=== PATIENT | female | born 1975 | race Caucasian/White ===

== ENCOUNTER 2018-05-23 10:43 | Inpatient (IN) | payer SELFPAY ==
[2018-05-23] VITALS (17 sets, daily range): BP systolic 122–148; BP diastolic 75–86
[~2018-05-23] VITALS: Ht 152.4 cm; Wt 82.1 kg
[2018-05-23 10:57] LABS: BASO # 0.1 x10^3/uL (0.0-0.2); BASO % 1 % (0-3); EOS # 0.2 x10^3/uL (0.0-0.7); EOS % 2 % (0-3); HEMATOCRIT 42.4 % (36.0-47.0); HEMOGLOBIN 14.2 g/dL (12.0-15.5); LYMPH # 2.7 x10^3/uL (1.0-4.8); LYMPH % 25 % (24-48); MEAN CORPUSCULAR HEMOGLOBIN 29 pg (25-35); MEAN CORPUSCULAR HGB CONC 34 g/dL (31-37); MEAN CORPUSCULAR VOLUME 87 fL (79-100); MONO # 1.6 x10^3/uL (0.0-1.1); MONO % 14 % (0-9); NEUT # 6.4 x10^3uL (1.8-7.7); NEUT % 59 % (31-73); PLATELET COUNT 170 x10^3/uL (140-400); RED BLOOD COUNT 4.86 x10^6/uL (3.50-5.40)
[2018-05-23] MEDS ORDERED: AMIODARONE 900 MG in IV DEXTROSE 5% 500 ML IV PRN (11:00)
[2018-05-23] MEDS ORDERED: HEPARIN for IV BOLUS 10,000 UNIT/10 ML VIAL. IV ONE (11:00)
--- NOTE | 2018-05-23 11:02 | PHYS DOC ---
Past Medical History Additional Past Medical Histor: ITP, Neutropennic Past Surgical History: Hysterectomy Additional Past Surgical Histo: Spleenectomy Additional Information: Nonsmoker Drug Use: None Adult General Chief Complaint Chief Complaint: CHEST PAIN-CARDIAC NATURE HPI HPI 43-year-old female presents from [place] as a STEMI activation. Patient reports she was swimming and suddenly started to have some crushing chest pain and nausea. Patient reports cardiac risk factors of family history with her father having an IL in his 60s. Denies diabetes, high blood pressure, high cholesterol, or smoking history. Denies . EMS reports giving 324 mg of aspirin, 100 g of fentanyl, nitroglycerin sublingual 2, zofran 4mg, and 1 inch of Nitropaste. Denies trauma. Denies leg swelling or calf tenderness. Review of Systems Review of Systems Constitutional: Denies fever or chills [] Eyes: Denies change in visual acuity, redness, or eye pain [] HENT: Denies nasal congestion or sore throat [] Respiratory: Denies cough or shortness of breath [] Cardiovascular: Reports chest pain GI: Denies abdominal pain; reports nausea : Denies dysuria or hematuria [] Musculoskeletal: Denies back pain or joint pain [] Integument: Denies rash or skin lesions [] Neurologic: Denies headache, focal weakness or sensory changes [] Complete systems were reviewed and found to be within normal limits, except as documented in this note. Current Medications Current Medications Current Medications Medications (Trade) Dose Ordered Sig/Kyleigh Start Time Stop Time Status Last Admin Dose Admin Amiodarone HCl 900 mg/Dextrose 518 ml @ 33 mls/hr CONT PRN 05/23/18 11:00 Heparin Sodium (Porcine) (Heparin Sodium) 4,000 unit 1X ONCE 05/23/18 11:00 05/23/18 11:01 DC Allergies Allergies Allergies Coded Allergies Type Severity Reaction Last Updated Verified morphine Adverse Reaction Intermediate "MAKES HER ANGRY" 05/23/18 Yes Physical Exam Physical Exam Constitutional: Well developed, well nourished, no acute distress, non-toxic appearance. [] HENT: Normocephalic, atraumatic, bilateral external ears normal, oropharynx moist, no oral exudates, nose normal. [] Eyes: PERRLA, EOMI, conjunctiva normal, no discharge. [] Neck: Normal range of motion, no tenderness, supple, no stridor. [] Cardiovascular:Heart rate regular rhythm, no murmur [] Lungs & Thorax: Bilateral breath sounds clear to auscultation [] Abdomen: Bowel sounds normal, soft, no tenderness, no masses, no pulsatile masses. [] Skin: Warm, dry, no erythema, no rash. [] Back: No tenderness, no CVA tenderness. [] Extremities: No tenderness, no cyanosis, no clubbing, ROM intact, no edema. [] Neurologic: Alert and oriented X 3, normal motor function, normal sensory function, no focal deficits noted. [] Psychologic: Affect normal, judgement normal, mood normal. [] EKG EKG [] Radiology/Procedures Radiology/Procedures [] Course & Med Decision Making Course & Med Decision Making Pertinent Labs and Imaging studies reviewed. (See chart for details) [] Dragon Disclaimer Dragon Disclaimer This electronic medical record was generated, in whole or in part, using a voice recognition dictation system. Departure Departure Impression: Primary Impression: STEMI (ST elevation myocardial infarction) Disposition: 09 ADMITTED INPATIENT Admitting Physician: Other (Romario) Condition: GUARDED Referrals: NO PCP (PCP) Critical Care Time Critical care time was 30 minutes which includes time at bedside, spent in discussion of patient's care with specialists and/or family members, with interpretation of laboratory and/or radiological studies and is exclusive of procedures. Problem Qualifiers Primary Impression: STEMI (ST elevation myocardial infarction) Involved coronary artery: unspecified coronary artery Qualified Codes: I21.3 - ST elevation (STEMI) myocardial infarction of unspecified site MICHELLE WASSERMAN DO May 23, 2018 11:02
[2018-05-23 11:08] LABS: PROTHROMBIN TIME PATIENT 12.8 SEC (11.7-14.0)
[2018-05-23] MEDS ORDERED: SUCCINYLCHOLINE 200 MG/10 ML VIAL. ONE (11:10)
[2018-05-23] MEDS ORDERED: ETOMIDATE 20 MG/10 ML VIAL. IV ONE (11:10)
[2018-05-23 11:12] LABS: CALCIUM 8.4 mg/dL (8.5-10.1); CREATININE 0.6 mg/dL (0.6-1.0); GFR 109.6; POTASSIUM 3.9 mmol/L (3.5-5.1)
[2018-05-23] MEDS ORDERED: MIDAZOLAM 100mg/100ml NS BAG 100 ML IV ONE (11:15)
[2018-05-23 11:18] LABS: ALBUMIN 3.4 g/dL (3.4-5.0); ALBUMIN/GLOBULIN RATIO 0.9 (1.0-1.7); MAGNESIUM 1.8 mg/dL (1.8-2.4); TOTAL BILIRUBIN 0.3 mg/dL (0.2-1.0); TOTAL PROTEIN 7.1 g/dL (6.4-8.2)
[2018-05-23] MEDS: IV NORMAL SALINE 1000ML BAG 1,000 ML IV SCH ×3 (11:27→23:20)
[2018-05-23] MEDS ORDERED: BIVALIRUDIN 250 MG VIAL. IV ONE ×2 (11:28→11:30)
[2018-05-23] MEDS ORDERED: IODIXANOL 320 MG/ML 100 ML VIAL. IART ONE (11:30)
[2018-05-23] MEDS ORDERED: LIDOCAINE 1% Multi-Dose 20 ML VIAL. INJ ONE (11:30)
[2018-05-23] MEDS ORDERED: MIDAZOLAM HCL/PF 2 MG/2 ML VIAL. IV ONE (11:30)
--- NOTE | 2018-05-23 11:40 | NUR ---
Patient arrived to ER via [facility] at 1041, EKG and Heparin IVP given then immediately transported to cath laboratory technician. During transport to cath laboratory technician patient went into pulseless Vfib at 1046 then shocked at 200J, regained pulse with SR at 1047 no compressions. Arrived to mushroom laborer at 1048, patient breathing with SR, diaphoretic and vomiting multiple times. Unable to lay flat due to vomiting. Patient intubated at 1105am by anesthesia, OG placed to continuous suction with clear and yellow liquid with food particles. Right groin accessed and proceeded with cardiac cath. Orders place according to Dr. Ryan.
--- NOTE | 2018-05-23 11:41 | EKG ---
[facility] [address] [place] [address] Test Date: 2018-05-23 Test Time: 10:45:25 Pat Name: DANIEL MCGRATH Department: Room: Gender: F Insurance Claims Supervisor: : 1975 Requested By: MICHELLE WASSERMAN Order Number: [id number] Reading MD: Ganesh Parks Measurements Intervals [place] Rate: 62 P: 26 NV: 156 QRS: -9 QRSD: 88 T: -1 QT: 424 QTc: 433 Interpretive Statements SINUS RHYTHM LEFTWARD AXIS QRS(T) CONTOUR ABNORMALITY *CONSIDER ACUTE ANTEROLATERAL MYOCARDIAL INFARCT ABNORMAL ECG Electronically Signed On 05-28-2018 13:15:20 CDT by Ganesh Parks
[2018-05-23] MEDS ORDERED: CONTRAST GIVEN. MC PRN (11:45)
[2018-05-23] MEDS ORDERED: IODIXANOL 320 MG/ML 100 ML VIAL. ONE (11:52)
[2018-05-23] MEDS ORDERED: TICAGRELOR 90 MG TABLET. PO ONE (12:00)
[2018-05-23] MEDS ORDERED: NITROGLYCERIN 200 MCG/2 ML SYRINGE FOR CATH/VASC LAB. IART ONE (12:15)
[2018-05-23] MEDS ORDERED: AMIODARONE 150 MG in IV DEXTROSE 5% 100ML 100 ML IV PRN (12:45)
[2018-05-23] MEDS ORDERED: NITROGLYCERIN SUBLINGUAL 0.4 MG BOTTLE OF 25. SL PRN (12:45)
[2018-05-23] MEDS ORDERED: 0.9 % SODIUM CHLORIDE 10 ML DISP.SYRIN. IV PRN ×2 (12:45→13:45)
[2018-05-23] MEDS ORDERED: fentaNYL PF VIAL 100 MCG/2 ML VIAL IV PRN (12:45)
[2018-05-23] MEDS ORDERED: ACETAMINOPHEN 325 MG TABLET. PO PRN (12:45)
[2018-05-23] MEDS ORDERED: LIDOCAINE 2% 100 MG/5 ML SYRINGE. IV PRN (12:45)
[2018-05-23] MEDS ORDERED: ATROPINE 0.5 MG/5 ML DISP.SYRINGE. IV PRN (12:45)
--- NOTE | 2018-05-23 13:10 | EKG ---
[facility] [address] [place] [address] Test Date: 2018-05-23 Test Time: 13:04:13 Pat Name: DANIEL MCGRATH Department: Room: 108 1 Gender: F Maintenance Worker Swimming Pool: : 1975 Requested By: JUDY WOODRUFF Order Number: [id number] Reading MD: Ganesh Parks Measurements Intervals [place] Rate: 87 P: 31 OK: 176 QRS: 32 QRSD: 90 T: 31 QT: 396 QTc: 482 Interpretive Statements SINUS RHYTHM VENTRICULAR PREMATURE COMPLEX(ES) LEFT ATRIAL ABNORMALITY LOW LIMB LEAD VOLTAGE QRS(T) CONTOUR ABNORMALITY CANNOT RULE OUT ANTEROSEPTAL MYOCARDIAL DAMAGE PROLONGED QT ABNORMAL ECG No previous ECG available for comparison Electronically Signed On 05-28-2018 13:24:47 CDT by Ganesh Parks
[2018-05-23 13:38] LABS: BASE EXCESS ABG -3 mmol/L (-3-3); HCO3 ABG 23 mmol/L (21-28); PCO2 ABG 41 mmHg (35-46); PO2 ABG 123 mmHg (75-108); SAT O2 ABG 98 % (92-99)
[2018-05-23 13:39] LABS: FIO2 ABG 50
--- NOTE | 2018-05-23 13:55 | RAD ---
Single view of the chest. 05/23/2018 1:03 PM Indication: Endotracheal tube placement. Enteric tube placement. Comparison: None Findings: There is an endotracheal tube in place with tip approximately 3.5 cm above the jonnie. There is an enteric tube extending into stomach. No pneumothorax or pleural effusion is seen. Retrocardiac opacification appears be present in the left which could be atelectasis or infiltrate. Left coronary stent appears to be present. Bony thorax is grossly intact. IMPRESSION: 1. Endotracheal tube 2.5 cm above the jonnie 2. Enteric tube extending into the stomach 3. Retrocardiac infiltrate or atelectasis Electronically signed by: Antony Johnson MD (05/23/2018 1:51 PM) [id number]
--- NOTE | 2018-05-23 13:59 | PDOC1 ---
History and Physical Date of Admission Date of Admission DATE: 05/23/18 TIME: 13:44 Identification/Chief Complaint Chief Complaint chest pain Problems: (1) STEMI (ST elevation myocardial infarction) Source Source: Caregiver, Chart review History of Present Illness History of Present Illness 43-year-old female hx of asthma, ITP who presents with chest pain while swimming today. most hx obtained from as patient sedated on vent. states that patient had not been feeling well for past several days and saw PCP 2 days ago. noted to have leukocytosis. patient has amoxicllin at home due to hx of spleenectomy so took this bc wasn't feeling well. no reported fever cough, sob nausea vomiting or diarrhea. from [place] as a STEMI activation. Patient reports she was swimming and suddenly experienced crushing chest pain and nausea. Patient's father having an ME in his 60s. no hx of DVT or PE. per patient has been exercising frequently. no hx of diabetes, HTN, HLD, or smoking history. prior to arrival EMS reports giving 324 mg of aspirin, 100 g of fentanyl, nitroglycerin sublingual 2, zofran 4mg, and 1 inch of Nitropaste. patient found to have STEMI on EKG in lV2 and V3. 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 given bolus of amio and started on amio drip and dopamine drip. also given bolus of heparin. patient had LAD occlusion and 1 stent deployed. returned to ICU on ventilator. currently on amio drip, dopamine drip. at bedside.. Past Medical History Past Medical History ITP, asthma Past Surgical History Past Surgical History hysterectomy, splenectomy Family History Family History CAD Social History Smoke: No ALCOHOL: occassional Drugs: None Current Problem List Problem List Problems Medical Problems: (1) STEMI (ST elevation myocardial infarction) Status: Acute Current Medications Current Medications Current Medications Heparin Sodium (Porcine) (Heparin Sodium) 4,000 unit 1X ONCE IV Last administered on 05/23/18at 10:43; Start 05/23/18 at 11:00; Stop 05/23/18 at 11:01 ; Status DC Amiodarone HCl 900 mg/Dextrose 518 ml @ 33 mls/hr CONT PRN IV SEE I/O RECORD Last administered on 05/23/18at 11:25; Start 05/23/18 at 11:00; Stop 05/23/18 at 11:25; Status DC Midazolam HCl 100 ml @ 0 mls/hr 1X ONCE IV Last administered on 05/23/18at 11: 15; Start 05/23/18 at 11:15; Stop 05/23/18 at 11:16; Status DC Heparin Sodium/ Sodium Chloride 500 ml @ As Directed STK-MED ONCE .ROUTE ; Start 05/23/18 at 11:10; Stop 05/23/18 at 11:11; Status DC Etomidate (Amidate) 20 mg STK-MED ONCE IV ; Start 05/23/18 at 11:10; Stop at 11:11; Status DC Succinylcholine Chloride (Anectine) 200 mg STK-MED ONCE .ROUTE ; Start 05/23/18 at 11:10; Stop 05/23/18 at 11:11; Status DC Midazolam HCl (Versed) 2 mg 1X ONCE IV Last administered on 05/23/18at 11:27; Start 05/23/18 at 11:30; Stop 05/23/18 at 11:31; Status DC Sodium Chloride 1,000 ml @ 75 mls/hr [id number] IV Last administered on at 11:27; Start 05/23/18 at 11:30 Bivalirudin (Angiomax) 250 mg STK-MED ONCE IV ; Start 05/23/18 at 11:28; Stop at 11:29; Status DC Heparin Sodium/ Sodium Chloride (HEPARIN for ARTERIAL LINE FLUSH) 1,000 unit 1X ONCE IART Last administered on 05/23/18at 11:30; Start 05/23/18 at 11:30; Stop 05/23/18 at 11:36; Status DC Iodixanol (Visipaque 320) 100 ml 1X ONCE IART Last administered on 05/23/18at 11:30; Start 05/23/18 at 11:30; Stop 05/23/18 at 11:36; Status DC Bivalirudin (Angiomax) 250 mg 1X ONCE IV Last administered on 05/23/18at 11:30 ; Start 05/23/18 at 11:30; Stop 05/23/18 at 11:36; Status DC Lidocaine HCl (Lidocaine 1% 20ml Vial) 20 ml 1X ONCE INJ Last administered on 05/23/18at 11:30; Start 05/23/18 at 11:30; Stop 05/23/18 at 11:36; Status DC Dopamine HCl/ Dextrose 250 ml @ 5.443 mls/ hr CONT PRN IV SEE I/O RECORD Last administered on 05/23/18at 11:55; Start 05/23/18 at 11:45 Info (CONTRAST GIVEN -- Rx MONITORING) 1 each PRN DAILY PRN MC SEE COMMENTS; Start 05/23/18 at 11:45; Stop 05/25/18 at 11:44 Iodixanol (Visipaque 320) 100 ml STK-MED ONCE .ROUTE ; Start 05/23/18 at 11:52; Stop 05/23/18 at 11:53; Status DC Heparin Sodium/ Sodium Chloride 500 ml @ As Directed STK-MED ONCE .ROUTE ; Start 05/23/18 at 11:57; Stop 05/23/18 at 11:58; Status DC Ticagrelor (Brilinta) 180 mg 1X ONCE PO ; Start 05/23/18 at 12:00; Stop at 12:07; Status DC Nitroglycerin (Nitroglycerin) 400 mcg 1X ONCE IART Last administered on at 12:06; Start 05/23/18 at 12:15; Stop 05/23/18 at 12:16; Status DC Sodium Chloride (Normal Saline Flush) 3 ml QSHIFT PRN IV AFTER MEDS AND BLOOD DRAWS; Start 05/23/18 at 12:45 Sodium Chloride 1,000 ml @ 75 mls/hr [id number] IV ; Start 05/23/18 at 12:31 Tirofiban/Sodium Chloride 100 ml @ 0 mls/hr CONT PRN IV PER PROTOCOL; Start at 12:45; Stop 05/24/18 at 06:44 Ticagrelor (Brilinta) 90 mg BID PO ; Start 05/24/18 at 09:00 Acetaminophen (Tylenol) 650 mg PRN Q6HRS PRN PO MILD PAIN / TEMP; Start at 12:45 Fentanyl Citrate (Fentanyl 2ml Vial) 50 mcg PRN Q1HR PRN IV MODERATE OR SEVERE PAIN; Start 05/23/18 at 12:45 Nitroglycerin (Nitrostat) 0.4 mg PRN Q5MIN PRN SL CHEST PAIN; Start 05/23/18 at 12:45 Amiodarone HCl 150 mg/Dextrose 103 ml @ 600 mls/hr 1X PRN PRN IV FOR VENTRICULAR TACHYCARDIA; Start 05/23/18 at 12:45 Lidocaine HCl (Lidocaine HCl 2% Abboject) 100 mg 1X PRN PRN IV FOR VENTRICULAR TACHYCARDIA; Start 05/23/18 at 12:45 Atropine Sulfate (ATROPINE 0.5mg SYRINGE) 0.5 mg PRN 1X PRN IV BRADYCARDIA; Start 05/23/18 at 12:45 Allergies Allergies: Coded Allergies: morphine (Verified Adverse Reaction, Intermediate, "MAKES HER ANGRY", 05/23) ROS Review of System currently sedated on vent Physical Exam Physical Exam GENERAL: sedated on vent HEENT: Head normocephalic, atraumatic. NECK: Supple LUNGS: Clear to auscultation. HEART: RRR, S1, S2 present, pulses intact ABDOMEN: Soft, positive bowel sounds. EXTREMITIES: No cyanosis or edema. NEUROLOGIC: sedated on vent Vitals Vitals Vital Signs Date Time Temp Pulse Resp B/P (MAP) Pulse Ox O2 Delivery O2 Flow Rate FiO2 05/23/18 12:40 98 Ventilator 05/23/18 10:43 97.3 62 20 140/88 (105) 97.3 Labs Labs Laboratory Tests Test 05/23/18 10:47 05/23/18 10:49 05/23/18 13:05 White Blood Count 11.0 x10^3/uL (4.0-11.0) Red Blood Count 4.86 x10^6/uL (3.50-5.40) Hemoglobin 14.2 g/dL (12.0-15.5) Hematocrit 42.4 % (36.0-47.0) Mean Corpuscular Volume 87 fL (79-100) Mean Corpuscular Hemoglobin 29 pg (25-35) Mean Corpuscular Hemoglobin Concent 34 g/dL (31-37) Red Cell Distribution Width 14.0 % (11.5-14.5) Platelet Count 170 x10^3/uL (140-400) Neutrophils (%) (Auto) 59 % (31-73) Lymphocytes (%) (Auto) 25 % (24-48) Monocytes (%) (Auto) 14 % (0-9) Eosinophils (%) (Auto) 2 % (0-3) Basophils (%) (Auto) 1 % (0-3) Neutrophils # (Auto) 6.4 x10^3uL (1.8-7.7) Lymphocytes # (Auto) 2.7 x10^3/uL (1.0-4.8) Monocytes # (Auto) 1.6 x10^3/uL (0.0-1.1) Eosinophils # (Auto) 0.2 x10^3/uL (0.0-0.7) Basophils # (Auto) 0.1 x10^3/uL (0.0-0.2) Prothrombin Time 12.8 SEC (11.7-14.0) Prothromb Time International Ratio 1.0 (0.8-1.1) Activated Partial Thromboplast Time 30 SEC (24-38) Sodium Level 138 mmol/L (136-145) Potassium Level 3.9 mmol/L (3.5-5.1) Chloride Level 102 mmol/L (98-107) Carbon Dioxide Level 23 mmol/L (21-32) Anion Gap 13 (6-14) Blood Urea Nitrogen 15 mg/dL (7-20) Creatinine 0.6 mg/dL (0.6-1.0) Estimated GFR (Cockcroft-Gault) 109.6 BUN/Creatinine Ratio 25 (6-20) Glucose Level 104 mg/dL (70-99) Calcium Level 8.4 mg/dL (8.5-10.1) Magnesium Level 1.8 mg/dL (1.8-2.4) Total Bilirubin 0.3 mg/dL (0.2-1.0) Aspartate Amino Transf (AST/SGOT) 19 U/L (15-37) Alanine Aminotransferase (ALT/SGPT) 25 U/L (14-59) Alkaline Phosphatase 42 U/L (46-116) Creatine Kinase 78 U/L (26-192) Creatine Kinase MB (Mass) 1.0 ng/mL (0.0-3.6) Creatine Kinase MB Relative Index 1.3 % (0-4) Troponin I Quantitative 0.155 ng/mL (0.000-0.055) [id number]-Type Natriuretic Peptide 46 pg/mL (0-124) Total Protein 7.1 g/dL (6.4-8.2) Albumin 3.4 g/dL (3.4-5.0) Albumin/Globulin Ratio 0.9 (1.0-1.7) Lipase 90 U/L (73-393) Bedside Troponin I 0.10 ng/ml (<0.08) O2 Saturation 98 % (92-99) Arterial Blood pH 7.36 (7.35-7.45) Arterial Blood pCO2 at Patient Temp 41 mmHg (35-46) Arterial Blood pO2 at Patient Temp 123 mmHg (75-108) Arterial Blood HCO3 23 mmol/L (21-28) Arterial Blood Base Excess -3 mmol/L (-3-3) FiO2 50 Laboratory Tests Test 05/23/18 10:47 05/23/18 10:49 05/23/18 13:05 White Blood Count 11.0 x10^3/uL (4.0-11.0) Red Blood Count 4.86 x10^6/uL (3.50-5.40) Hemoglobin 14.2 g/dL (12.0-15.5) Hematocrit 42.4 % (36.0-47.0) Mean Corpuscular Volume 87 fL (79-100) Mean Corpuscular Hemoglobin 29 pg (25-35) Mean Corpuscular Hemoglobin Concent 34 g/dL (31-37) Red Cell Distribution Width 14.0 % (11.5-14.5) Platelet Count 170 x10^3/uL (140-400) Neutrophils (%) (Auto) 59 % (31-73) Lymphocytes (%) (Auto) 25 % (24-48) Monocytes (%) (Auto) 14 % (0-9) Eosinophils (%) (Auto) 2 % (0-3) Basophils (%) (Auto) 1 % (0-3) Neutrophils # (Auto) 6.4 x10^3uL (1.8-7.7) Lymphocytes # (Auto) 2.7 x10^3/uL (1.0-4.8) Monocytes # (Auto) 1.6 x10^3/uL (0.0-1.1) Eosinophils # (Auto) 0.2 x10^3/uL (0.0-0.7) Basophils # (Auto) 0.1 x10^3/uL (0.0-0.2) Prothrombin Time 12.8 SEC (11.7-14.0) Prothromb Time International Ratio 1.0 (0.8-1.1) Activated Partial Thromboplast Time 30 SEC (24-38) Sodium Level 138 mmol/L (136-145) Potassium Level 3.9 mmol/L (3.5-5.1) Chloride Level 102 mmol/L (98-107) Carbon Dioxide Level 23 mmol/L (21-32) Anion Gap 13 (6-14) Blood Urea Nitrogen 15 mg/dL (7-20) Creatinine 0.6 mg/dL (0.6-1.0) Estimated GFR (Cockcroft-Gault) 109.6 BUN/Creatinine Ratio 25 (6-20) Glucose Level 104 mg/dL (70-99) Calcium Level 8.4 mg/dL (8.5-10.1) Magnesium Level 1.8 mg/dL (1.8-2.4) Total Bilirubin 0.3 mg/dL (0.2-1.0) Aspartate Amino Transf (AST/SGOT) 19 U/L (15-37) Alanine Aminotransferase (ALT/SGPT) 25 U/L (14-59) Alkaline Phosphatase 42 U/L (46-116) Creatine Kinase 78 U/L (26-192) Creatine Kinase MB (Mass) 1.0 ng/mL (0.0-3.6) Creatine Kinase MB Relative Index 1.3 % (0-4) Troponin I Quantitative 0.155 ng/mL (0.000-0.055) [id number]-Type Natriuretic Peptide 46 pg/mL (0-124) Total Protein 7.1 g/dL (6.4-8.2) Albumin 3.4 g/dL (3.4-5.0) Albumin/Globulin Ratio 0.9 (1.0-1.7) Lipase 90 U/L (73-393) Bedside Troponin I 0.10 ng/ml (<0.08) O2 Saturation 98 % (92-99) Arterial Blood pH 7.36 (7.35-7.45) Arterial Blood pCO2 at Patient Temp 41 mmHg (35-46) Arterial Blood pO2 at Patient Temp 123 mmHg (75-108) Arterial Blood HCO3 23 mmol/L (21-28) Arterial Blood Base Excess -3 mmol/L (-3-3) FiO2 50 VTE Prophylaxis Ordered VTE Prophylaxis Devices: Yes VTE Pharmacological Prophylaxi: Yes Assessment/Plan Assessment/Plan ASSESSMENT STEMI s/p cath with LAD occlusion with stent deployed Acute Hypoxic Resp Failure Hx of Asthma Hx of ITP s/p splenectomy PLAN: admit to ICU keep on vent with sedation for 24 hrs pulm consult cards consulted defer heparin drip to cards will need NG tube placement since on vent start statin therapy anti-plt therapy per cards continue amio drip BMP and CBC stable check TSH, lipid profile, a1c full code dvt ppx: heparin > 2 MN LOS due to STEMI, resp failure on vent Problem Qualifiers (1) STEMI (ST elevation myocardial infarction): Involved coronary artery: unspecified coronary artery Qualified Codes: I21.3 - ST elevation (STEMI) myocardial infarction of unspecified site ELLYN SLADE MD May 23, 2018 13:59
--- NOTE | 2018-05-23 14:58 | CONS ---
DATE OF CONSULTATION: 05/23/2018 PULMONARY CONSULTATION ATTENDING PHYSICIAN: Dr. Woody Doss. REASON FOR CONSULTATION: Respiratory failure. HISTORY OF PRESENT ILLNESS: The patient is a 43-year-old female who has a history of very mild asthma and ITP. She had previous splenectomy. She presented with chest pain at [facility] while swimming today. The patient was brought into [facility] and had EKG changes of STEMI. She was en route to the hospital laboratory technician when she was found to be in atrial fibrillation and had to be subsequently shocked once. She was intubated for airway protection. She underwent emergent cardiac catheterization. I do not have the cath report available yet, but I was told that she had a dissection of LAD and had a stent placed. Currently, she is stable hemodynamically. She is on Versed and amiodarone and also on p.r.n. fentanyl. I have reviewed chest x-ray. It shows minimal atelectasis of retrocardiac area and endotracheal tube is in satisfactory position. Her is at the bedside who states that she has no chronic lung condition except very mild asthma, which is under well controlled with p.r.n. albuterol. PAST MEDICAL HISTORY: Significant for history of ITP, history of mild asthma. PAST SURGICAL HISTORY: Hysterectomy and splenectomy. FAMILY HISTORY: CAD. SOCIAL HISTORY: Nonsmoker, nonalcoholic. ALLERGIES: MORPHINE. MEDICATIONS: Reviewed as listed in the MRAD. PHYSICAL EXAMINATION: VITAL SIGNS: Reviewed, blood pressure stable, pulse ox 98% on room air. HEENT: Sclerae nonicteric. NECK: Supple. LUNGS: Clear. CARDIOVASCULAR: Regular rate and rhythm. ABDOMEN: Soft. EXTREMITIES: With no pitting edema. LABORATORY DATA: Reviewed. ABG showed a pH of 7.36, pCO2 of 41, and pO2 of 123 on 50% FiO2. She is on assist control mode. Her troponin level was 14.3. Her BUN and creatinine 15 and 0.6. Lipase 90. INR 1.0. White cell count 11.0, hemoglobin 14.2. IMPRESSION: 1. Acute respiratory failure secondary to cardiac arrhythmia and ST elevation myocardial infarction. 2. Status post emergent cardiac catheterization with dissection of left anterior descending artery, status post stenting. Official report is still pending. 3. Mild history of asthma on p.r.n. albuterol. 4. Abnormal chest x-ray with atelectasis in retrocardiac area. We will follow another x-ray in the morning. 5. History of idiopathic thrombocytopenic purpura, status post splenectomy. RECOMMENDATIONS: 1. Discussed with RN and . We will watch her overnight on the ventilator. 2. Change Versed to propofol and add fentanyl drip. Hopefully, we can easily awake her up in the morning before CPAP trial. 3. Add bronchodilators. 4. Follow cardiology recommendations. 5. Watch hemodynamic status closely. Critical care time 33 minutes. CARMEN UMANZOR MD DR: EFREN/sommer JOB#: [id number] / [id number]
[2018-05-23] MEDS: ALBUTEROL SULFATE 2.5 MG/3 ML NEBU. NEB SCH ×2 (16:18→19:59)
--- NOTE | 2018-05-23 17:38 | CARD ---
MR#: [id number] Date of Study: 05/23/2018 Ordering Physician: JUDY CHAPA, Referring Physician: Fred RYAN: RT Lizy (R) APPROVED REPORT Procedures Left heart catheterization Selective coronary angiogram Left ventriculogram Bare metal stent placement to the mid LAD The patient is a 43-year-old female who presented to the emergency room with 1-1-1/2 hours of chest p ain. Initial EKG in the ambulance suggested anterior wall myocardial infarction. The patient has a hi story of an unspecified disorder possibly with her platelets. She otherwise has been in good health. Upon her arrival in the emergency room an EKG confirmed anterior ST elevation consistent with an infa rction. Risks and benefits of emergency catheterization and revascularization were discussed with the patient and her . She agreed to proceed with catheterization and possible intervention. Upon transfer from the ER to the catheter lab the patient had a ventricular fibrillation arrest and was de fibrillated while on the cart. She then was brought to the catheter lab where she had recurrent episo mony of nausea and vomiting with some decreased level of consciousness. Secondary to this the patient was intubated to protect her airway. Following intubation the area of the right femoral artery was prepared in the usual manner with Betad ine, sterile draping and local anesthetic. An 18-gauge needle was used to enter the right femoral art jyoti, a wire placed and a 6 Canadian sheath placed over the wire. An 18-gauge needle was entered using t he right femoral vein, a wire placed and a 6 Canadian sheath placed over the wire. Initially a 6 Canadian Ketan diagnostic right catheter was used to engage the right coronary artery and sequential injec tions in various views were obtained. A 6 Canadian XB 3.5 guide was used to engage the left coronary sy stem. Sequential injections in various views were obtained. This showed a greater than 90% lesion in the mid LAD that was very suggestive of a spontaneous dissection. We proceeded to revascularize this vessel. Of note there was distal flow present when we took our initial images. Angiomax was given as per protocol. A PT choice wire was used to cross the lesion. A 2.5 x 20 mm trek balloon was used for an initial 2 inflations at 6 walt for 15 seconds. A MultiLM2 Digital Limited vision bare metal stent 3.0 x 28 mm was then deployed with one inflation at 15 walt for 15 seconds. Residual lesion was 0%. The area both of the proximal and more distal portion of the initial lesion were well covered by the stent. We monitored the vessel for approximately 10 minutes. It remained stable with good flow. F ollowing this the guiding system was removed from the patient. A pigtail was then advanced to the lef t ventricle. Pressures were obtained and a 30 PERSAUD left ventriculogram was performed. Pullback pressu res were measured. The catheter was removed the patient. The sheaths were sutured into place. The pat ient was then moved to the intensive care unit. <Conclusion> Hemodynamics. Left ventricular pressure of 126/9, 22. Aortic root pressure of 124/78. Coronaries. Left main. Left main was a moderate size vessel. It had no lesions. Left anterior descending. The LAD was a moderate size vessel with normal distribution. It had mid les ion of approximately 90% or greater. Its initial site of the lesion was suggestive of a spontaneous d issection. Left circumflex. The left circumflex is a moderate size vessel with normal distribution. It had no le sions. Right coronary artery. The right coronary was a moderate size vessel with normal distribution. It had no lesions. Left ventriculogram. The left ventricle showed mildly decreased anterior apical LV function with an ejection estimated at 45%. Conclusions. Status post ventricular fibrillation arrest. Severe single-vessel coronary disease with a greater than 90% mid LAD lesion suggestive of a spontane ous dissection. Successful stenting of the LAD with residual lesion of 0% Mildly decreased LV systolic function with an ejection fraction of 45%. Signed by : Judy Chapa MD Electronically Approved : 05/23/2018 17:38:00
--- NOTE | 2018-05-23 18:01 | PDOC2 ---
CONSULT Date of Consult Date of Consult DATE: 05/23/18 TIME: 17:56 Reason for Consult Reason for Consult: ST elevated myocardial infarction Referring Physician Referring Physician: Dr. Doss Identification/Chief Complaint Chief Complaint Chest pain Source Source: Patient History of Present Illness Reason for Visit: The patient is a pleasant 43-year-old female who developed chest pain approximately one hour ago. Patient was swimming and developed midsternal chest discomfort. Paramedics were called and her EKG was suggestive of an anterior wall ST elevated myocardial infarction. She was transported emergently to the [facility] emergency room. She was met when she entered the emergency room. She was continued to have chest pain. EKG again showed anterior ST segment elevations. Patient reported a history of possible platelet abnormality as well as asthma. She denies any history of coronary disease, congestive heart failure or cardiac arrhythmias. She does have a strong family history of coronary disease. Past Medical History Pulmonary: Asthma Past Surgical History Past Surgical History: No pertinent history Family History Family History: Coronary Artery Disease, Heart Disease Social History No ALCOHOL: occassional Drugs: None Current Problem List Problem List Problems Medical Problems: (1) STEMI (ST elevation myocardial infarction) Status: Acute Current Medications Current Medications Current Medications Heparin Sodium (Porcine) (Heparin Sodium) 4,000 unit 1X ONCE IV Last administered on 05/23/18at 10:43; Start 05/23/18 at 11:00; Stop 05/23/18 at 11:01 ; Status DC Amiodarone HCl 900 mg/Dextrose 518 ml @ 33 mls/hr CONT PRN IV SEE I/O RECORD Last administered on 05/23/18at 11:25; Start 05/23/18 at 11:00; Stop 05/23/18 at 11:25; Status DC Midazolam HCl 100 ml @ 0 mls/hr 1X ONCE IV Last administered on 05/23/18at 11: 15; Start 05/23/18 at 11:15; Stop 05/23/18 at 14:42; Status DC Heparin Sodium/ Sodium Chloride 500 ml @ As Directed STK-MED ONCE .ROUTE ; Start 05/23/18 at 11:10; Stop 05/23/18 at 11:11; Status DC Etomidate (Amidate) 20 mg STK-MED ONCE IV ; Start 05/23/18 at 11:10; Stop at 11:11; Status DC Succinylcholine Chloride (Anectine) 200 mg STK-MED ONCE .ROUTE ; Start 05/23/18 at 11:10; Stop 05/23/18 at 11:11; Status DC Midazolam HCl (Versed) 2 mg 1X ONCE IV Last administered on 05/23/18at 11:27; Start 05/23/18 at 11:30; Stop 05/23/18 at 11:31; Status DC Sodium Chloride 1,000 ml @ 75 mls/hr [id number] IV Last administered on at 11:27; Start 05/23/18 at 11:30 Bivalirudin (Angiomax) 250 mg STK-MED ONCE IV ; Start 05/23/18 at 11:28; Stop at 11:29; Status DC Heparin Sodium/ Sodium Chloride (HEPARIN for ARTERIAL LINE FLUSH) 1,000 unit 1X ONCE IART Last administered on 05/23/18at 11:30; Start 05/23/18 at 11:30; Stop 05/23/18 at 11:36; Status DC Iodixanol (Visipaque 320) 100 ml 1X ONCE IART Last administered on 05/23/18at 11:30; Start 05/23/18 at 11:30; Stop 05/23/18 at 11:36; Status DC Bivalirudin (Angiomax) 250 mg 1X ONCE IV Last administered on 05/23/18at 11:30 ; Start 05/23/18 at 11:30; Stop 05/23/18 at 11:36; Status DC Lidocaine HCl (Lidocaine 1% 20ml Vial) 20 ml 1X ONCE INJ Last administered on 05/23/18at 11:30; Start 05/23/18 at 11:30; Stop 05/23/18 at 11:36; Status DC Dopamine HCl/ Dextrose 250 ml @ 5.443 mls/ hr CONT PRN IV SEE I/O RECORD Last administered on 05/23/18at 11:55; Start 05/23/18 at 11:45; Stop 05/23/18 at 14:42 ; Status DC Info (CONTRAST GIVEN -- Rx MONITORING) 1 each PRN DAILY PRN MC SEE COMMENTS; Start 05/23/18 at 11:45; Stop 05/25/18 at 11:44 Iodixanol (Visipaque 320) 100 ml STK-MED ONCE .ROUTE ; Start 05/23/18 at 11:52; Stop 05/23/18 at 11:53; Status DC Heparin Sodium/ Sodium Chloride 500 ml @ As Directed STK-MED ONCE .ROUTE ; Start 05/23/18 at 11:57; Stop 05/23/18 at 11:58; Status DC Ticagrelor (Brilinta) 180 mg 1X ONCE PO Last administered on 05/23/18at 14:00; Start 05/23/18 at 12:00; Stop 05/23/18 at 12:07; Status DC Nitroglycerin (Nitroglycerin) 400 mcg 1X ONCE IART Last administered on at 12:06; Start 05/23/18 at 12:15; Stop 05/23/18 at 12:16; Status DC Sodium Chloride (Normal Saline Flush) 3 ml QSHIFT PRN IV AFTER MEDS AND BLOOD DRAWS; Start 05/23/18 at 12:45 Sodium Chloride 1,000 ml @ 75 mls/hr [id number] IV Last administered on at 14:06; Start 05/23/18 at 12:31 Tirofiban/Sodium Chloride 100 ml @ 0 mls/hr CONT PRN IV PER PROTOCOL; Start at 12:45; Stop 05/24/18 at 06:44 Ticagrelor (Brilinta) 90 mg BID PO ; Start 05/24/18 at 09:00 Acetaminophen (Tylenol) 650 mg PRN Q6HRS PRN PO MILD PAIN / TEMP; Start at 12:45 Fentanyl Citrate (Fentanyl 2ml Vial) 50 mcg PRN Q1HR PRN IV MODERATE OR SEVERE PAIN; Start 05/23/18 at 12:45 Nitroglycerin (Nitrostat) 0.4 mg PRN Q5MIN PRN SL CHEST PAIN; Start 05/23/18 at 12:45 Amiodarone HCl 150 mg/Dextrose 103 ml @ 600 mls/hr 1X PRN PRN IV FOR VENTRICULAR TACHYCARDIA; Start 05/23/18 at 12:45 Lidocaine HCl (Lidocaine HCl 2% Abboject) 100 mg 1X PRN PRN IV FOR VENTRICULAR TACHYCARDIA; Start 05/23/18 at 12:45 Atropine Sulfate (ATROPINE 0.5mg SYRINGE) 0.5 mg PRN 1X PRN IV BRADYCARDIA; Start 05/23/18 at 12:45 Sodium Chloride (Normal Saline Flush) 3 ml QSHIFT PRN IV AFTER MEDS AND BLOOD DRAWS; Start 05/23/18 at 13:45 Fentanyl Citrate 30 ml @ 0 mls/hr CONT PRN PRN IV PER PROTOCOL; Start 05/23/18 at 14:15; Status Cancel Fentanyl Citrate 30 ml @ 0 mls/hr CONT PRN IV PER PROTOCOL; Start 05/23/18 at 14:30 Albuterol Sulfate (Ventolin Neb Soln) 2.5 mg RTQID NEB Last administered on at 16:18; Start 05/23/18 at 16:00 Propofol 100 ml @ 1.089 mls/ hr CONT PRN IV SEE I/O RECORD; Start 05/23/18 at 14:45 Allergies Allergies: Coded Allergies: morphine (Verified Adverse Reaction, Intermediate, "MAKES HER ANGRY", 05/23) ROS Respiratory: YES: Shortness of breath Cardiovascular: yes Chest Pain Physical Exam General: moderate distress HEENT: Atraumatic Lungs: Clear to auscultation Heart: Regular rate Abdomen: Normal bowel sounds Vitals VITALS Vital Signs Date Time Temp Pulse Resp B/P (MAP) Pulse Ox O2 Delivery O2 Flow Rate FiO2 05/23/18 17:00 82 14 136/76 (96) 100 Ventilator 05/23/18 16:00 98.9 98.9 Labs Labs Laboratory Tests Test 05/23/18 10:47 05/23/18 10:49 05/23/18 13:05 05/23/18 13:45 White Blood Count 11.0 x10^3/uL (4.0-11.0) Red Blood Count 4.86 x10^6/uL (3.50-5.40) Hemoglobin 14.2 g/dL (12.0-15.5) Hematocrit 42.4 % (36.0-47.0) Mean Corpuscular Volume 87 fL (79-100) Mean Corpuscular Hemoglobin 29 pg (25-35) Mean Corpuscular Hemoglobin Concent 34 g/dL (31-37) Red Cell Distribution Width 14.0 % (11.5-14.5) Platelet Count 170 x10^3/uL (140-400) Neutrophils (%) (Auto) 59 % (31-73) Lymphocytes (%) (Auto) 25 % (24-48) Monocytes (%) (Auto) 14 % (0-9) Eosinophils (%) (Auto) 2 % (0-3) Basophils (%) (Auto) 1 % (0-3) Neutrophils # (Auto) 6.4 x10^3uL (1.8-7.7) Lymphocytes # (Auto) 2.7 x10^3/uL (1.0-4.8) Monocytes # (Auto) 1.6 x10^3/uL (0.0-1.1) Eosinophils # (Auto) 0.2 x10^3/uL (0.0-0.7) Basophils # (Auto) 0.1 x10^3/uL (0.0-0.2) Prothrombin Time 12.8 SEC (11.7-14.0) Prothromb Time International Ratio 1.0 (0.8-1.1) Activated Partial Thromboplast Time 30 SEC (24-38) Sodium Level 138 mmol/L (136-145) Potassium Level 3.9 mmol/L (3.5-5.1) Chloride Level 102 mmol/L (98-107) Carbon Dioxide Level 23 mmol/L (21-32) Anion Gap 13 (6-14) Blood Urea Nitrogen 15 mg/dL (7-20) Creatinine 0.6 mg/dL (0.6-1.0) Estimated GFR (Cockcroft-Gault) 109.6 BUN/Creatinine Ratio 25 (6-20) Glucose Level 104 mg/dL (70-99) Calcium Level 8.4 mg/dL (8.5-10.1) Magnesium Level 1.8 mg/dL (1.8-2.4) Total Bilirubin 0.3 mg/dL (0.2-1.0) Aspartate Amino Transf (AST/SGOT) 19 U/L (15-37) Alanine Aminotransferase (ALT/SGPT) 25 U/L (14-59) Alkaline Phosphatase 42 U/L (46-116) Creatine Kinase 78 U/L (26-192) Creatine Kinase MB (Mass) 1.0 ng/mL (0.0-3.6) Creatine Kinase MB Relative Index 1.3 % (0-4) Troponin I Quantitative 0.155 ng/mL (0.000-0.055) 14.312 ng/mL (0.000-0.055) FN-Rwb-P-Type Natriuretic Peptide 46 pg/mL (0-124) Total Protein 7.1 g/dL (6.4-8.2) Albumin 3.4 g/dL (3.4-5.0) Albumin/Globulin Ratio 0.9 (1.0-1.7) Triglycerides Level 65 mg/dL (0-150) Cholesterol Level 155 mg/dL (0-200) LDL Cholesterol, Calculated 91 mg/dL (0-100) VLDL Cholesterol, Calculated 13 mg/dL (0-40) Non-HDL Cholesterol Calculated 104 mg/dL (0-129) HDL Cholesterol 51 mg/dL (40-60) Cholesterol/HDL Ratio 3.0 Lipase 90 U/L (73-393) Thyroid Stimulating Hormone (TSH) 1.568 uIU/mL (0.358-3.74) Bedside Troponin I 0.10 ng/ml (<0.08) O2 Saturation 98 % (92-99) Arterial Blood pH 7.36 (7.35-7.45) Arterial Blood pCO2 at Patient Temp 41 mmHg (35-46) Arterial Blood pO2 at Patient Temp 123 mmHg (75-108) Arterial Blood HCO3 23 mmol/L (21-28) Arterial Blood Base Excess -3 mmol/L (-3-3) FiO2 50 Laboratory Tests Test 05/23/18 10:47 05/23/18 10:49 05/23/18 13:05 05/23/18 13:45 White Blood Count 11.0 x10^3/uL (4.0-11.0) Red Blood Count 4.86 x10^6/uL (3.50-5.40) Hemoglobin 14.2 g/dL (12.0-15.5) Hematocrit 42.4 % (36.0-47.0) Mean Corpuscular Volume 87 fL (79-100) Mean Corpuscular Hemoglobin 29 pg (25-35) Mean Corpuscular Hemoglobin Concent 34 g/dL (31-37) Red Cell Distribution Width 14.0 % (11.5-14.5) Platelet Count 170 x10^3/uL (140-400) Neutrophils (%) (Auto) 59 % (31-73) Lymphocytes (%) (Auto) 25 % (24-48) Monocytes (%) (Auto) 14 % (0-9) Eosinophils (%) (Auto) 2 % (0-3) Basophils (%) (Auto) 1 % (0-3) Neutrophils # (Auto) 6.4 x10^3uL (1.8-7.7) Lymphocytes # (Auto) 2.7 x10^3/uL (1.0-4.8) Monocytes # (Auto) 1.6 x10^3/uL (0.0-1.1) Eosinophils # (Auto) 0.2 x10^3/uL (0.0-0.7) Basophils # (Auto) 0.1 x10^3/uL (0.0-0.2) Prothrombin Time 12.8 SEC (11.7-14.0) Prothromb Time International Ratio 1.0 (0.8-1.1) Activated Partial Thromboplast Time 30 SEC (24-38) Sodium Level 138 mmol/L (136-145) Potassium Level 3.9 mmol/L (3.5-5.1) Chloride Level 102 mmol/L (98-107) Carbon Dioxide Level 23 mmol/L (21-32) Anion Gap 13 (6-14) Blood Urea Nitrogen 15 mg/dL (7-20) Creatinine 0.6 mg/dL (0.6-1.0) Estimated GFR (Cockcroft-Gault) 109.6 BUN/Creatinine Ratio 25 (6-20) Glucose Level 104 mg/dL (70-99) Calcium Level 8.4 mg/dL (8.5-10.1) Magnesium Level 1.8 mg/dL (1.8-2.4) Total Bilirubin 0.3 mg/dL (0.2-1.0) Aspartate Amino Transf (AST/SGOT) 19 U/L (15-37) Alanine Aminotransferase (ALT/SGPT) 25 U/L (14-59) Alkaline Phosphatase 42 U/L (46-116) Creatine Kinase 78 U/L (26-192) Creatine Kinase MB (Mass) 1.0 ng/mL (0.0-3.6) Creatine Kinase MB Relative Index 1.3 % (0-4) Troponin I Quantitative 0.155 ng/mL (0.000-0.055) 14.312 ng/mL (0.000-0.055) UD-Bht-Z-Type Natriuretic Peptide 46 pg/mL (0-124) Total Protein 7.1 g/dL (6.4-8.2) Albumin 3.4 g/dL (3.4-5.0) Albumin/Globulin Ratio 0.9 (1.0-1.7) Triglycerides Level 65 mg/dL (0-150) Cholesterol Level 155 mg/dL (0-200) LDL Cholesterol, Calculated 91 mg/dL (0-100) VLDL Cholesterol, Calculated 13 mg/dL (0-40) Non-HDL Cholesterol Calculated 104 mg/dL (0-129) HDL Cholesterol 51 mg/dL (40-60) Cholesterol/HDL Ratio 3.0 Lipase 90 U/L (73-393) Thyroid Stimulating Hormone (TSH) 1.568 uIU/mL (0.358-3.74) Bedside Troponin I 0.10 ng/ml (<0.08) O2 Saturation 98 % (92-99) Arterial Blood pH 7.36 (7.35-7.45) Arterial Blood pCO2 at Patient Temp 41 mmHg (35-46) Arterial Blood pO2 at Patient Temp 123 mmHg (75-108) Arterial Blood HCO3 23 mmol/L (21-28) Arterial Blood Base Excess -3 mmol/L (-3-3) FiO2 50 Assessment/Plan Assessment/Plan 1. Chest pain. Acute onset of new chest pain. EKG is consistent with an anterior wall myocardial infarction. This was discussed with the patient and her family. Risks and benefits of emergent catheterization and possible intervention were discussed. The patient is given informed consent to proceed. We'll bring emergently to the catheterization lab. 2. Asthma. Patient's lungs have no wheezing. JUDY WOODRUFF MD May 23, 2018 18:01
[2018-05-23] MEDS: TIROFIBAN 5MG -0.9% NS 100 ML IV PRN (21:37)
--- NOTE | 2018-05-23 21:45 | NUR ---
Dr Ryan called, updated on overall condition--stable vital signs, no arrhythmia, and decreasing urine output; also notified of Troponin increased to 36.115. Orders received to increase NS IVF to 100CC/HR, continue to monitor urine output and not necessary to call if continues to be low. See orders, I/O, vital signs, lab.
[2018-05-23] MEDS: TICAGRELOR 90 MG TABLET. PO SCH (23:07)
[2018-05-23] MEDS: PROPOFOL 100 ML IV PRN (23:20)
[2018-05-24] VITALS (28 sets, daily range): BP systolic 116–154; BP diastolic 59–86
[2018-05-24 00:08] LABS: HEMOGLOBIN A1C 5.2 % (4.8-5.6)
[2018-05-24] MEDS: IV NORMAL SALINE 1000ML BAG 1,000 ML IV SCH ×3 (01:51→20:18)
[2018-05-24] MEDS: TIROFIBAN 5MG -0.9% NS 100 ML IV PRN (03:49)
[2018-05-24] MEDS: PROPOFOL 100 ML IV PRN (05:46)
[2018-05-24 06:11] LABS: BASO # 0.1 x10^3/uL (0.0-0.2); BASO % 0 % (0-3); EOS # 0.1 x10^3/uL (0.0-0.7); EOS % 0 % (0-3); HEMATOCRIT 37.9 % (36.0-47.0); HEMOGLOBIN 12.8 g/dL (12.0-15.5); LYMPH % 12 % (24-48); MEAN CORPUSCULAR HEMOGLOBIN 30 pg (25-35); MEAN CORPUSCULAR HGB CONC 34 g/dL (31-37); MEAN CORPUSCULAR VOLUME 88 fL (79-100); MONO # 1.9 x10^3/uL (0.0-1.1); MONO % 12 % (0-9); NEUT # 12.5 x10^3uL (1.8-7.7); NEUT % 76 % (31-73); PLATELET COUNT 149 x10^3/uL (140-400); RED CELL DISTRIBUTION WIDTH 14.5 % (11.5-14.5); WHITE BLOOD COUNT 16.6 x10^3/uL (4.0-11.0)
[2018-05-24 06:13] LABS: CALCIUM 7.4 mg/dL (8.5-10.1); CREATININE 0.5 mg/dL (0.6-1.0); GFR 135.3; MAGNESIUM 1.8 mg/dL (1.8-2.4); POTASSIUM 3.1 mmol/L (3.5-5.1)
--- NOTE | 2018-05-24 06:32 | EKG ---
[facility] [address] [place] [address] Test Date: 2018-05-24 Test Time: 06:16:13 Pat Name: DANIEL MCGRATH Department: Room: 108 1 Gender: F [employer]: : 1975 Requested By: JUDY WOODRUFF Order Number: [id number] Reading MD: Ganesh Parks Measurements Intervals [place] Rate: 73 P: 30 NH: 178 QRS: 31 QRSD: 82 T: 29 QT: 476 QTc: 528 Interpretive Statements SINUS RHYTHM LIMB LEAD VOLTAGE QRS(T) CONTOUR ABNORMALITY CANNOT RULE OUT ANTEROSEPTAL MYOCARDIAL DAMAGE T ABNORMALITY IN ANTERIOR LEADS PROLONGED QT ABNORMAL ECG Electronically Signed On 05-29-2018 8:16:12 CDT by Ganesh Parks
[2018-05-24] MEDS: ALBUTEROL SULFATE 2.5 MG/3 ML NEBU. NEB SCH ×4 (07:23→20:00)
[2018-05-24 07:33] LABS: BASE EXCESS ABG -2 mmol/L (-3-3); HCO3 ABG 22 mmol/L (21-28); PCO2 ABG 34 mmHg (35-46); PO2 ABG 149 mmHg (75-108); SAT O2 ABG 99 % (92-99)
--- NOTE | 2018-05-24 07:55 | RAD ---
Single view of the chest. 05/24/2018 6:42 AM Indication: RESPIRATORY FAILURE Comparison: Chest radiograph, yesterday Findings: Endotracheal tube and enteric tube are stable. Coronary stent noted. Heart size is top normal. Low lung volumes are seen. There is probable mild right basilar atelectasis. There is left basilar opacification possibly representing small effusion or atelectasis. No acute osseous changes are noted in the interim. IMPRESSION: 1. Stable support lines and tubes. 2. Low lung volumes with right basilar atelectasis. Small left pleural effusion versus atelectasis also noted. Electronically signed by: Antony Johnson MD (05/24/2018 7:52 AM) [id number]
--- NOTE | 2018-05-24 07:58 | PDOC ---
PROGRESS NOTES Chief Complaint Chief Complaint STEMI s/p cath with LAD occlusion with stent deployed Acute Hypoxic Resp Failure Hx of Asthma Hx of ITP s/p splenectomy PLAN: Likely extubation this morning pulm consult cards consulted defer heparin drip to cards Replace K start statin therapy anti-plt therapy per cards continue amio drip BMP and CBC stable TSH, lipid profile, a1c full code dvt ppx: heparin > 2 MN LOS due to STEMI, resp failure on vent History of Present Illness History of Present Illness 43-year-old female hx of asthma, ITP who presents with chest pain while swimming today. most hx obtained from as patient sedated on vent. states that patient had not been feeling well for past several days and saw PCP 2 days ago. noted to have leukocytosis. patient has amoxicllin at home due to hx of spleenectomy so took this bc wasn't feeling well. no reported fever cough, sob nausea vomiting or diarrhea. from [place] as a STEMI activation. Patient reports she was swimming and suddenly experienced crushing chest pain and nausea. Patient's father having an SD in his 60s. no hx of DVT or PE. per patient has been exercising frequently. no hx of diabetes, HTN, HLD, or smoking history. prior to arrival EMS reports giving 324 mg of aspirin, 100 g of fentanyl, nitroglycerin sublingual 2, zofran 4mg, and 1 inch of Nitropaste. patient found to have STEMI on EKG in lV2 and V3. en route to clinical genetics laboratory chief patient found to be in vfib, subsequently intubated and shocked. given bolus of amio and started on amio drip and dopamine drip. also given bolus of heparin. patient had LAD occlusion and 1 stent deployed. returned to ICU on ventilator. currently on amio drip, dopamine drip. at bedside. ABG this mornin.36/41/123 on Fi O2 of 30%, Peep 5, K 3.1, Mg1.8 Vitals Vitals Vital Signs Date Time Temp Pulse Resp B/P (MAP) Pulse Ox O2 Delivery O2 Flow Rate FiO2 05/24/18 07:45 Mechanical Ventilator 05/24/18 07:39 98.7 14 100 98.7 05/24/18 07:00 71 138/74 (95) Physical Exam General: moderate distress Heart: Regular rate Abdomen: Normal bowel sounds Labs LABS Laboratory Tests Test 05/23/18 10:47 05/23/18 10:49 05/23/18 13:05 05/23/18 13:45 White Blood Count 11.0 x10^3/uL (4.0-11.0) Red Blood Count 4.86 x10^6/uL (3.50-5.40) Hemoglobin 14.2 g/dL (12.0-15.5) Hematocrit 42.4 % (36.0-47.0) Mean Corpuscular Volume 87 fL (79-100) Mean Corpuscular Hemoglobin 29 pg (25-35) Mean Corpuscular Hemoglobin Concent 34 g/dL (31-37) Red Cell Distribution Width 14.0 % (11.5-14.5) Platelet Count 170 x10^3/uL (140-400) Neutrophils (%) (Auto) 59 % (31-73) Lymphocytes (%) (Auto) 25 % (24-48) Monocytes (%) (Auto) 14 % (0-9) Eosinophils (%) (Auto) 2 % (0-3) Basophils (%) (Auto) 1 % (0-3) Neutrophils # (Auto) 6.4 x10^3uL (1.8-7.7) Lymphocytes # (Auto) 2.7 x10^3/uL (1.0-4.8) Monocytes # (Auto) 1.6 x10^3/uL (0.0-1.1) Eosinophils # (Auto) 0.2 x10^3/uL (0.0-0.7) Basophils # (Auto) 0.1 x10^3/uL (0.0-0.2) Prothrombin Time 12.8 SEC (11.7-14.0) Prothromb Time International Ratio 1.0 (0.8-1.1) Activated Partial Thromboplast Time 30 SEC (24-38) Sodium Level 138 mmol/L (136-145) Potassium Level 3.9 mmol/L (3.5-5.1) Chloride Level 102 mmol/L (98-107) Carbon Dioxide Level 23 mmol/L (21-32) Anion Gap 13 (6-14) Blood Urea Nitrogen 15 mg/dL (7-20) Creatinine 0.6 mg/dL (0.6-1.0) Estimated GFR (Cockcroft-Gault) 109.6 BUN/Creatinine Ratio 25 (6-20) Glucose Level 104 mg/dL (70-99) Hemoglobin A1c 5.2 % (4.8-5.6) Calcium Level 8.4 mg/dL (8.5-10.1) Magnesium Level 1.8 mg/dL (1.8-2.4) Total Bilirubin 0.3 mg/dL (0.2-1.0) Aspartate Amino Transf (AST/SGOT) 19 U/L (15-37) Alanine Aminotransferase (ALT/SGPT) 25 U/L (14-59) Alkaline Phosphatase 42 U/L (46-116) Creatine Kinase 78 U/L (26-192) Creatine Kinase MB (Mass) 1.0 ng/mL (0.0-3.6) Creatine Kinase MB Relative Index 1.3 % (0-4) Troponin I Quantitative 0.155 ng/mL (0.000-0.055) 14.312 ng/mL (0.000-0.055) BH-Saw-R-Type Natriuretic Peptide 46 pg/mL (0-124) Total Protein 7.1 g/dL (6.4-8.2) Albumin 3.4 g/dL (3.4-5.0) Albumin/Globulin Ratio 0.9 (1.0-1.7) Triglycerides Level 65 mg/dL (0-150) Cholesterol Level 155 mg/dL (0-200) LDL Cholesterol, Calculated 91 mg/dL (0-100) VLDL Cholesterol, Calculated 13 mg/dL (0-40) Non-HDL Cholesterol Calculated 104 mg/dL (0-129) HDL Cholesterol 51 mg/dL (40-60) Cholesterol/HDL Ratio 3.0 Lipase 90 U/L (73-393) Thyroid Stimulating Hormone (TSH) 1.568 uIU/mL (0.358-3.74) Bedside Troponin I 0.10 ng/ml (<0.08) O2 Saturation 98 % (92-99) Arterial Blood pH 7.36 (7.35-7.45) Arterial Blood pCO2 at Patient Temp 41 mmHg (35-46) Arterial Blood pO2 at Patient Temp 123 mmHg (75-108) Arterial Blood HCO3 23 mmol/L (21-28) Arterial Blood Base Excess -3 mmol/L (-3-3) FiO2 50 Test 05/23/18 20:30 05/24/18 05:45 Troponin I Quantitative 36.155 ng/mL (0.000-0.055) White Blood Count 16.6 x10^3/uL (4.0-11.0) Red Blood Count 4.30 x10^6/uL (3.50-5.40) Hemoglobin 12.8 g/dL (12.0-15.5) Hematocrit 37.9 % (36.0-47.0) Mean Corpuscular Volume 88 fL (79-100) Mean Corpuscular Hemoglobin 30 pg (25-35) Mean Corpuscular Hemoglobin Concent 34 g/dL (31-37) Red Cell Distribution Width 14.5 % (11.5-14.5) Platelet Count 149 x10^3/uL (140-400) Neutrophils (%) (Auto) 76 % (31-73) Lymphocytes (%) (Auto) 12 % (24-48) Monocytes (%) (Auto) 12 % (0-9) Eosinophils (%) (Auto) 0 % (0-3) Basophils (%) (Auto) 0 % (0-3) Neutrophils # (Auto) 12.5 x10^3uL (1.8-7.7) Lymphocytes # (Auto) 2.0 x10^3/uL (1.0-4.8) Monocytes # (Auto) 1.9 x10^3/uL (0.0-1.1) Eosinophils # (Auto) 0.1 x10^3/uL (0.0-0.7) Basophils # (Auto) 0.1 x10^3/uL (0.0-0.2) Sodium Level 138 mmol/L (136-145) Potassium Level 3.1 mmol/L (3.5-5.1) Chloride Level 104 mmol/L (98-107) Carbon Dioxide Level 24 mmol/L (21-32) Anion Gap 10 (6-14) Blood Urea Nitrogen 10 mg/dL (7-20) Creatinine 0.5 mg/dL (0.6-1.0) Estimated GFR (Cockcroft-Gault) 135.3 Glucose Level 112 mg/dL (70-99) Calcium Level 7.4 mg/dL (8.5-10.1) Magnesium Level 1.8 mg/dL (1.8-2.4) Assessment and Plan Assessmemt and Plan Problems Medical Problems: (1) STEMI (ST elevation myocardial infarction) Status: Acute Comment Review of Relevant I have reviewed the following items grant (where applicable) has been applied. Labs Laboratory Tests Test 05/23/18 10:47 05/23/18 10:49 05/23/18 13:05 05/23/18 13:45 White Blood Count 11.0 x10^3/uL (4.0-11.0) Red Blood Count 4.86 x10^6/uL (3.50-5.40) Hemoglobin 14.2 g/dL (12.0-15.5) Hematocrit 42.4 % (36.0-47.0) Mean Corpuscular Volume 87 fL (79-100) Mean Corpuscular Hemoglobin 29 pg (25-35) Mean Corpuscular Hemoglobin Concent 34 g/dL (31-37) Red Cell Distribution Width 14.0 % (11.5-14.5) Platelet Count 170 x10^3/uL (140-400) Neutrophils (%) (Auto) 59 % (31-73) Lymphocytes (%) (Auto) 25 % (24-48) Monocytes (%) (Auto) 14 % (0-9) Eosinophils (%) (Auto) 2 % (0-3) Basophils (%) (Auto) 1 % (0-3) Neutrophils # (Auto) 6.4 x10^3uL (1.8-7.7) Lymphocytes # (Auto) 2.7 x10^3/uL (1.0-4.8) Monocytes # (Auto) 1.6 x10^3/uL (0.0-1.1) Eosinophils # (Auto) 0.2 x10^3/uL (0.0-0.7) Basophils # (Auto) 0.1 x10^3/uL (0.0-0.2) Prothrombin Time 12.8 SEC (11.7-14.0) Prothromb Time International Ratio 1.0 (0.8-1.1) Activated Partial Thromboplast Time 30 SEC (24-38) Sodium Level 138 mmol/L (136-145) Potassium Level 3.9 mmol/L (3.5-5.1) Chloride Level 102 mmol/L (98-107) Carbon Dioxide Level 23 mmol/L (21-32) Anion Gap 13 (6-14) Blood Urea Nitrogen 15 mg/dL (7-20) Creatinine 0.6 mg/dL (0.6-1.0) Estimated GFR (Cockcroft-Gault) 109.6 BUN/Creatinine Ratio 25 (6-20) Glucose Level 104 mg/dL (70-99) Hemoglobin A1c 5.2 % (4.8-5.6) Calcium Level 8.4 mg/dL (8.5-10.1) Magnesium Level 1.8 mg/dL (1.8-2.4) Total Bilirubin 0.3 mg/dL (0.2-1.0) Aspartate Amino Transf (AST/SGOT) 19 U/L (15-37) Alanine Aminotransferase (ALT/SGPT) 25 U/L (14-59) Alkaline Phosphatase 42 U/L (46-116) Creatine Kinase 78 U/L (26-192) Creatine Kinase MB (Mass) 1.0 ng/mL (0.0-3.6) Creatine Kinase MB Relative Index 1.3 % (0-4) Troponin I Quantitative 0.155 ng/mL (0.000-0.055) 14.312 ng/mL (0.000-0.055) JX-Arr-V-Type Natriuretic Peptide 46 pg/mL (0-124) Total Protein 7.1 g/dL (6.4-8.2) Albumin 3.4 g/dL (3.4-5.0) Albumin/Globulin Ratio 0.9 (1.0-1.7) Triglycerides Level 65 mg/dL (0-150) Cholesterol Level 155 mg/dL (0-200) LDL Cholesterol, Calculated 91 mg/dL (0-100) VLDL Cholesterol, Calculated 13 mg/dL (0-40) Non-HDL Cholesterol Calculated 104 mg/dL (0-129) HDL Cholesterol 51 mg/dL (40-60) Cholesterol/HDL Ratio 3.0 Lipase 90 U/L (73-393) Thyroid Stimulating Hormone (TSH) 1.568 uIU/mL (0.358-3.74) Bedside Troponin I 0.10 ng/ml (<0.08) O2 Saturation 98 % (92-99) Arterial Blood pH 7.36 (7.35-7.45) Arterial Blood pCO2 at Patient Temp 41 mmHg (35-46) Arterial Blood pO2 at Patient Temp 123 mmHg (75-108) Arterial Blood HCO3 23 mmol/L (21-28) Arterial Blood Base Excess -3 mmol/L (-3-3) FiO2 50 Test 05/23/18 20:30 05/24/18 05:45 Troponin I Quantitative 36.155 ng/mL (0.000-0.055) White Blood Count 16.6 x10^3/uL (4.0-11.0) Red Blood Count 4.30 x10^6/uL (3.50-5.40) Hemoglobin 12.8 g/dL (12.0-15.5) Hematocrit 37.9 % (36.0-47.0) Mean Corpuscular Volume 88 fL (79-100) Mean Corpuscular Hemoglobin 30 pg (25-35) Mean Corpuscular Hemoglobin Concent 34 g/dL (31-37) Red Cell Distribution Width 14.5 % (11.5-14.5) Platelet Count 149 x10^3/uL (140-400) Neutrophils (%) (Auto) 76 % (31-73) Lymphocytes (%) (Auto) 12 % (24-48) Monocytes (%) (Auto) 12 % (0-9) Eosinophils (%) (Auto) 0 % (0-3) Basophils (%) (Auto) 0 % (0-3) Neutrophils # (Auto) 12.5 x10^3uL (1.8-7.7) Lymphocytes # (Auto) 2.0 x10^3/uL (1.0-4.8) Monocytes # (Auto) 1.9 x10^3/uL (0.0-1.1) Eosinophils # (Auto) 0.1 x10^3/uL (0.0-0.7) Basophils # (Auto) 0.1 x10^3/uL (0.0-0.2) Sodium Level 138 mmol/L (136-145) Potassium Level 3.1 mmol/L (3.5-5.1) Chloride Level 104 mmol/L (98-107) Carbon Dioxide Level 24 mmol/L (21-32) Anion Gap 10 (6-14) Blood Urea Nitrogen 10 mg/dL (7-20) Creatinine 0.5 mg/dL (0.6-1.0) Estimated GFR (Cockcroft-Gault) 135.3 Glucose Level 112 mg/dL (70-99) Calcium Level 7.4 mg/dL (8.5-10.1) Magnesium Level 1.8 mg/dL (1.8-2.4) Laboratory Tests Test 05/23/18 10:47 05/23/18 10:49 05/23/18 13:05 05/23/18 13:45 White Blood Count 11.0 x10^3/uL (4.0-11.0) Red Blood Count 4.86 x10^6/uL (3.50-5.40) Hemoglobin 14.2 g/dL (12.0-15.5) Hematocrit 42.4 % (36.0-47.0) Mean Corpuscular Volume 87 fL (79-100) Mean Corpuscular Hemoglobin 29 pg (25-35) Mean Corpuscular Hemoglobin Concent 34 g/dL (31-37) Red Cell Distribution Width 14.0 % (11.5-14.5) Platelet Count 170 x10^3/uL (140-400) Neutrophils (%) (Auto) 59 % (31-73) Lymphocytes (%) (Auto) 25 % (24-48) Monocytes (%) (Auto) 14 % (0-9) Eosinophils (%) (Auto) 2 % (0-3) Basophils (%) (Auto) 1 % (0-3) Neutrophils # (Auto) 6.4 x10^3uL (1.8-7.7) Lymphocytes # (Auto) 2.7 x10^3/uL (1.0-4.8) Monocytes # (Auto) 1.6 x10^3/uL (0.0-1.1) Eosinophils # (Auto) 0.2 x10^3/uL (0.0-0.7) Basophils # (Auto) 0.1 x10^3/uL (0.0-0.2) Prothrombin Time 12.8 SEC (11.7-14.0) Prothromb Time International Ratio 1.0 (0.8-1.1) Activated Partial Thromboplast Time 30 SEC (24-38) Sodium Level 138 mmol/L (136-145) Potassium Level 3.9 mmol/L (3.5-5.1) Chloride Level 102 mmol/L (98-107) Carbon Dioxide Level 23 mmol/L (21-32) Anion Gap 13 (6-14) Blood Urea Nitrogen 15 mg/dL (7-20) Creatinine 0.6 mg/dL (0.6-1.0) Estimated GFR (Cockcroft-Gault) 109.6 BUN/Creatinine Ratio 25 (6-20) Glucose Level 104 mg/dL (70-99) Hemoglobin A1c 5.2 % (4.8-5.6) Calcium Level 8.4 mg/dL (8.5-10.1) Magnesium Level 1.8 mg/dL (1.8-2.4) Total Bilirubin 0.3 mg/dL (0.2-1.0) Aspartate Amino Transf (AST/SGOT) 19 U/L (15-37) Alanine Aminotransferase (ALT/SGPT) 25 U/L (14-59) Alkaline Phosphatase 42 U/L (46-116) Creatine Kinase 78 U/L (26-192) Creatine Kinase MB (Mass) 1.0 ng/mL (0.0-3.6) Creatine Kinase MB Relative Index 1.3 % (0-4) Troponin I Quantitative 0.155 ng/mL (0.000-0.055) 14.312 ng/mL (0.000-0.055) NR-Fla-E-Type Natriuretic Peptide 46 pg/mL (0-124) Total Protein 7.1 g/dL (6.4-8.2) Albumin 3.4 g/dL (3.4-5.0) Albumin/Globulin Ratio 0.9 (1.0-1.7) Triglycerides Level 65 mg/dL (0-150) Cholesterol Level 155 mg/dL (0-200) LDL Cholesterol, Calculated 91 mg/dL (0-100) VLDL Cholesterol, Calculated 13 mg/dL (0-40) Non-HDL Cholesterol Calculated 104 mg/dL (0-129) HDL Cholesterol 51 mg/dL (40-60) Cholesterol/HDL Ratio 3.0 Lipase 90 U/L (73-393) Thyroid Stimulating Hormone (TSH) 1.568 uIU/mL (0.358-3.74) Bedside Troponin I 0.10 ng/ml (<0.08) O2 Saturation 98 % (92-99) Arterial Blood pH 7.36 (7.35-7.45) Arterial Blood pCO2 at Patient Temp 41 mmHg (35-46) Arterial Blood pO2 at Patient Temp 123 mmHg (75-108) Arterial Blood HCO3 23 mmol/L (21-28) Arterial Blood Base Excess -3 mmol/L (-3-3) FiO2 50 Test 05/23/18 20:30 05/24/18 05:45 Troponin I Quantitative 36.155 ng/mL (0.000-0.055) White Blood Count 16.6 x10^3/uL (4.0-11.0) Red Blood Count 4.30 x10^6/uL (3.50-5.40) Hemoglobin 12.8 g/dL (12.0-15.5) Hematocrit 37.9 % (36.0-47.0) Mean Corpuscular Volume 88 fL (79-100) Mean Corpuscular Hemoglobin 30 pg (25-35) Mean Corpuscular Hemoglobin Concent 34 g/dL (31-37) Red Cell Distribution Width 14.5 % (11.5-14.5) Platelet Count 149 x10^3/uL (140-400) Neutrophils (%) (Auto) 76 % (31-73) Lymphocytes (%) (Auto) 12 % (24-48) Monocytes (%) (Auto) 12 % (0-9) Eosinophils (%) (Auto) 0 % (0-3) Basophils (%) (Auto) 0 % (0-3) Neutrophils # (Auto) 12.5 x10^3uL (1.8-7.7) Lymphocytes # (Auto) 2.0 x10^3/uL (1.0-4.8) Monocytes # (Auto) 1.9 x10^3/uL (0.0-1.1) Eosinophils # (Auto) 0.1 x10^3/uL (0.0-0.7) Basophils # (Auto) 0.1 x10^3/uL (0.0-0.2) Sodium Level 138 mmol/L (136-145) Potassium Level 3.1 mmol/L (3.5-5.1) Chloride Level 104 mmol/L (98-107) Carbon Dioxide Level 24 mmol/L (21-32) Anion Gap 10 (6-14) Blood Urea Nitrogen 10 mg/dL (7-20) Creatinine 0.5 mg/dL (0.6-1.0) Estimated GFR (Cockcroft-Gault) 135.3 Glucose Level 112 mg/dL (70-99) Calcium Level 7.4 mg/dL (8.5-10.1) Magnesium Level 1.8 mg/dL (1.8-2.4) Medications Current Medications Heparin Sodium (Porcine) (Heparin Sodium) 4,000 unit 1X ONCE IV Last administered on 05/23/18at 10:43; Start 05/23/18 at 11:00; Stop 05/23/18 at 11:01 ; Status DC Amiodarone HCl 900 mg/Dextrose 518 ml @ 33 mls/hr CONT PRN IV SEE I/O RECORD Last administered on 05/23/18at 11:25; Start 05/23/18 at 11:00; Stop 05/23/18 at 11:25; Status DC Midazolam HCl 100 ml @ 0 mls/hr 1X ONCE IV Last administered on 05/23/18at 11: 15; Start 05/23/18 at 11:15; Stop 05/23/18 at 14:42; Status DC Heparin Sodium/ Sodium Chloride 500 ml @ As Directed STK-MED ONCE .ROUTE ; Start 05/23/18 at 11:10; Stop 05/23/18 at 11:11; Status DC Etomidate (Amidate) 20 mg STK-MED ONCE IV ; Start 05/23/18 at 11:10; Stop at 11:11; Status DC Succinylcholine Chloride (Anectine) 200 mg STK-MED ONCE .ROUTE ; Start 05/23/18 at 11:10; Stop 05/23/18 at 11:11; Status DC Midazolam HCl (Versed) 2 mg 1X ONCE IV Last administered on 05/23/18at 11:27; Start 05/23/18 at 11:30; Stop 05/23/18 at 11:31; Status DC Sodium Chloride 1,000 ml @ 100 mls/hr Q10H IV Last administered on 05/23/18at 23:20; Start 05/23/18 at 11:30 Bivalirudin (Angiomax) 250 mg STK-MED ONCE IV ; Start 05/23/18 at 11:28; Stop at 11:29; Status DC Heparin Sodium/ Sodium Chloride (HEPARIN for ARTERIAL LINE FLUSH) 1,000 unit 1X ONCE IART Last administered on 05/23/18at 11:30; Start 05/23/18 at 11:30; Stop 05/23/18 at 11:36; Status DC Iodixanol (Visipaque 320) 100 ml 1X ONCE IART Last administered on 05/23/18at 11:30; Start 05/23/18 at 11:30; Stop 05/23/18 at 11:36; Status DC Bivalirudin (Angiomax) 250 mg 1X ONCE IV Last administered on 05/23/18at 11:30 ; Start 05/23/18 at 11:30; Stop 05/23/18 at 11:36; Status DC Lidocaine HCl (Lidocaine 1% 20ml Vial) 20 ml 1X ONCE INJ Last administered on 05/23/18at 11:30; Start 05/23/18 at 11:30; Stop 05/23/18 at 11:36; Status DC Dopamine HCl/ Dextrose 250 ml @ 5.443 mls/ hr CONT PRN IV SEE I/O RECORD Last administered on 05/23/18at 11:55; Start 05/23/18 at 11:45; Stop 05/23/18 at 14:42 ; Status DC Info (CONTRAST GIVEN -- Rx MONITORING) 1 each PRN DAILY PRN MC SEE COMMENTS; Start 05/23/18 at 11:45; Stop 05/25/18 at 11:44 Iodixanol (Visipaque 320) 100 ml STK-MED ONCE .ROUTE ; Start 05/23/18 at 11:52; Stop 05/23/18 at 11:53; Status DC Heparin Sodium/ Sodium Chloride 500 ml @ As Directed STK-MED ONCE .ROUTE ; Start 05/23/18 at 11:57; Stop 05/23/18 at 11:58; Status DC Ticagrelor (Brilinta) 180 mg 1X ONCE PO Last administered on 05/23/18at 14:00; Start 05/23/18 at 12:00; Stop 05/23/18 at 12:07; Status DC Nitroglycerin (Nitroglycerin) 400 mcg 1X ONCE IART Last administered on at 12:06; Start 05/23/18 at 12:15; Stop 05/23/18 at 12:16; Status DC Sodium Chloride (Normal Saline Flush) 3 ml QSHIFT PRN IV AFTER MEDS AND BLOOD DRAWS; Start 05/23/18 at 12:45 Sodium Chloride 1,000 ml @ 75 mls/hr [id number] IV Last administered on at 14:06; Start 05/23/18 at 12:31; Stop 05/24/18 at 02:50; Status DC Tirofiban/Sodium Chloride 100 ml @ 0 mls/hr CONT PRN IV PER PROTOCOL Last administered on 05/24/18at 03:49; Start 05/23/18 at 12:45; Stop 05/24/18 at 06:44 ; Status DC Ticagrelor (Brilinta) 90 mg BID PO Last administered on 05/23/18at 23:07; Start 05/23/18 at 23:00 Acetaminophen (Tylenol) 650 mg PRN Q6HRS PRN PO MILD PAIN / TEMP; Start at 12:45 Fentanyl Citrate (Fentanyl 2ml Vial) 50 mcg PRN Q1HR PRN IV MODERATE OR SEVERE PAIN; Start 05/23/18 at 12:45 Nitroglycerin (Nitrostat) 0.4 mg PRN Q5MIN PRN SL CHEST PAIN; Start 05/23/18 at 12:45 Amiodarone HCl 150 mg/Dextrose 103 ml @ 600 mls/hr 1X PRN PRN IV FOR VENTRICULAR TACHYCARDIA; Start 05/23/18 at 12:45 Lidocaine HCl (Lidocaine HCl 2% Abboject) 100 mg 1X PRN PRN IV FOR VENTRICULAR TACHYCARDIA; Start 05/23/18 at 12:45 Atropine Sulfate (ATROPINE 0.5mg SYRINGE) 0.5 mg PRN 1X PRN IV BRADYCARDIA; Start 05/23/18 at 12:45 Sodium Chloride (Normal Saline Flush) 3 ml QSHIFT PRN IV AFTER MEDS AND BLOOD DRAWS; Start 05/23/18 at 13:45 Fentanyl Citrate 30 ml @ 0 mls/hr CONT PRN PRN IV PER PROTOCOL; Start 05/23/18 at 14:15; Status Cancel Fentanyl Citrate 30 ml @ 0 mls/hr CONT PRN IV PER PROTOCOL Last administered on 05/23/18at 23:32; Start 05/23/18 at 14:30 Albuterol Sulfate (Ventolin Neb Soln) 2.5 mg RTQID NEB Last administered on at 07:23; Start 05/23/18 at 16:00 Propofol 100 ml @ 1.089 mls/ hr CONT PRN IV SEE I/O RECORD Last administered on 05/24/18at 05:46; Start 05/23/18 at 14:45 Vitals/I & O Vital Sign - Last 24 Hours 05/23/18 05/23/18 05/23/18 05/23/18 10:43 12:30 12:35 12:40 Temp 97.3 98.0 97.3 98.0 Pulse 62 94 Resp 20 14 B/P (MAP) 140/88 (105) 122/75 (91) 129/76 (93) Pulse Ox 98 100 98 O2 Delivery Room Air Ventilator Ventilator 05/23/18 05/23/18 05/23/18 05/23/18 12:45 12:45 13:00 13:15 Pulse 94 90 92 Resp 16 22 16 B/P (MAP) 136/80 (98) 132/78 (96) 138/78 (98) Pulse Ox 100 100 100 O2 Delivery Mechanical Ventilator Ventilator Ventilator Ventilator 05/23/18 05/23/18 05/23/18 05/23/18 13:30 13:45 14:00 15:00 Pulse 88 86 90 Resp 14 14 14 B/P (MAP) 136/80 (98) 138/78 (98) 136/80 (98) Pulse Ox 100 100 100 O2 Delivery Ventilator Ventilator Ventilator Ventilator 05/23/18 05/23/18 05/23/18 05/23/18 16:00 16:00 16:13 17:00 Temp 98.9 98.9 Pulse 82 82 Resp 14 14 B/P (MAP) 130/76 (94) 136/76 (96) Pulse Ox 100 100 100 O2 Delivery Ventilator Mechanical Ventilator Ventilator Ventilator 05/23/18 05/23/18 05/23/18 05/23/18 18:00 19:00 19:59 20:00 Pulse 90 80 90 Resp 14 14 B/P (MAP) 132/77 (95) 140/80 (100) 144/78 (100) Pulse Ox 100 100 100 O2 Delivery Ventilator Ventilator Ventilator 05/23/18 05/23/18 05/23/18 05/23/18 20:00 20:00 20:21 21:00 Temp 98.4 98.4 Pulse 90 91 Resp 14 14 B/P (MAP) 148/84 (105) 144/78 (100) 141/79 (99) Pulse Ox 100 100 O2 Delivery Ventilator Mechanical Ventilator Ventilator 05/23/18 05/23/18 05/23/18 05/23/18 22:00 23:00 23:29 23:32 Pulse 88 84 Resp 14 14 14 B/P (MAP) 142/86 (104) 142/82 (102) Pulse Ox 100 99 99 99 O2 Delivery Ventilator Ventilator Ventilator Ventilator 05/23/18 05/23/18 05/23/18 05/23/18 23:59 23:59 23:59 23:59 Temp 99.0 99.0 Pulse 80 80 Resp 14 14 B/P (MAP) 140/78 (98) 140/78 (98) Pulse Ox 99 99 O2 Delivery Mechanical Ventilator Ventilator 05/24/18 05/24/18 05/24/18 05/24/18 01:00 02:00 02:31 03:00 Pulse 78 81 73 Resp 14 14 14 B/P (MAP) 154/86 (108) 147/82 (103) 144/78 (100) Pulse Ox 99 100 100 100 O2 Delivery Ventilator Ventilator Ventilator Ventilator 05/24/18 05/24/18 05/24/18 05/24/18 04:00 04:00 04:00 04:53 Temp 99.1 99.1 Pulse 74 74 Resp 14 B/P (MAP) 136/72 (93) 136/72 (93) Pulse Ox 99 99 O2 Delivery Mechanical Ventilator Ventilator Ventilator 05/24/18 05/24/18 05/24/18 05/24/18 05:00 06:00 07:00 07:23 Pulse 68 75 71 Resp 14 14 14 B/P (MAP) 135/73 (93) 136/76 (96) 138/74 (95) Pulse Ox 100 100 100 100 O2 Delivery Ventilator Ventilator Ventilator Ventilator 05/24/18 05/24/18 07:39 07:45 Temp 98.7 98.7 Resp 14 Pulse Ox 100 O2 Delivery Mechanical Ventilator Intake and Output 05/23/18 05/23/18 05/24/18 15:00 23:00 07:00 Intake Total 0 ml 1603.5 ml Output Total 900 ml 950 ml 270 ml Balance -900 ml -950 ml 1333.5 ml GLORIA ROCHA MD May 24, 2018 07:58
[2018-05-24] MEDS ORDERED: POTASSIUM CHLORIDE 20 MEQ/15 ML ORAL LIQUID. PEG ONE (08:00)
[2018-05-24] MEDS ORDERED: MAGNESIUM SULFATE 1GM 100 ML IV ONE (08:00)
[2018-05-24 08:24] LABS: FIO2 ABG 40
[2018-05-24 08:26] LABS: % BANDS 1 % (0-9); % LYMPHS 12 % (24-48); % MONOS 8 % (0-10); % SEGS 79 % (35-66); PLT ESTIMATE ADEQUATE (ADEQUATE)
[2018-05-24] MEDS: TICAGRELOR 90 MG TABLET. PO SCH ×2 (08:30→21:27)
--- NOTE | 2018-05-24 10:21 | PDOC ---
PULMONARY PROGRESS NOTES Subjective on AC mode/ sedated Vitals Vital Signs Date Time Temp Pulse Resp B/P (MAP) Pulse Ox O2 Delivery O2 Flow Rate FiO2 05/24/18 09:00 90 14 138/77 (97) 100 Ventilator 05/24/18 07:39 98.7 98.7 Lungs: Clear Cardiovascular: S1 Abdomen: Soft Extremities: No Edema Skin: Warm Labs Laboratory Tests Test 05/23/18 10:47 05/23/18 10:49 05/23/18 13:05 05/23/18 13:45 White Blood Count 11.0 x10^3/uL (4.0-11.0) Red Blood Count 4.86 x10^6/uL (3.50-5.40) Hemoglobin 14.2 g/dL (12.0-15.5) Hematocrit 42.4 % (36.0-47.0) Mean Corpuscular Volume 87 fL (79-100) Mean Corpuscular Hemoglobin 29 pg (25-35) Mean Corpuscular Hemoglobin Concent 34 g/dL (31-37) Red Cell Distribution Width 14.0 % (11.5-14.5) Platelet Count 170 x10^3/uL (140-400) Neutrophils (%) (Auto) 59 % (31-73) Lymphocytes (%) (Auto) 25 % (24-48) Monocytes (%) (Auto) 14 % (0-9) Eosinophils (%) (Auto) 2 % (0-3) Basophils (%) (Auto) 1 % (0-3) Neutrophils # (Auto) 6.4 x10^3uL (1.8-7.7) Lymphocytes # (Auto) 2.7 x10^3/uL (1.0-4.8) Monocytes # (Auto) 1.6 x10^3/uL (0.0-1.1) Eosinophils # (Auto) 0.2 x10^3/uL (0.0-0.7) Basophils # (Auto) 0.1 x10^3/uL (0.0-0.2) Prothrombin Time 12.8 SEC (11.7-14.0) Prothromb Time International Ratio 1.0 (0.8-1.1) Activated Partial Thromboplast Time 30 SEC (24-38) Sodium Level 138 mmol/L (136-145) Potassium Level 3.9 mmol/L (3.5-5.1) Chloride Level 102 mmol/L (98-107) Carbon Dioxide Level 23 mmol/L (21-32) Anion Gap 13 (6-14) Blood Urea Nitrogen 15 mg/dL (7-20) Creatinine 0.6 mg/dL (0.6-1.0) Estimated GFR (Cockcroft-Gault) 109.6 BUN/Creatinine Ratio 25 (6-20) Glucose Level 104 mg/dL (70-99) Hemoglobin A1c 5.2 % (4.8-5.6) Calcium Level 8.4 mg/dL (8.5-10.1) Magnesium Level 1.8 mg/dL (1.8-2.4) Total Bilirubin 0.3 mg/dL (0.2-1.0) Aspartate Amino Transf (AST/SGOT) 19 U/L (15-37) Alanine Aminotransferase (ALT/SGPT) 25 U/L (14-59) Alkaline Phosphatase 42 U/L (46-116) Creatine Kinase 78 U/L (26-192) Creatine Kinase MB (Mass) 1.0 ng/mL (0.0-3.6) Creatine Kinase MB Relative Index 1.3 % (0-4) Troponin I Quantitative 0.155 ng/mL (0.000-0.055) 14.312 ng/mL (0.000-0.055) PB-Tim-K-Type Natriuretic Peptide 46 pg/mL (0-124) Total Protein 7.1 g/dL (6.4-8.2) Albumin 3.4 g/dL (3.4-5.0) Albumin/Globulin Ratio 0.9 (1.0-1.7) Triglycerides Level 65 mg/dL (0-150) Cholesterol Level 155 mg/dL (0-200) LDL Cholesterol, Calculated 91 mg/dL (0-100) VLDL Cholesterol, Calculated 13 mg/dL (0-40) Non-HDL Cholesterol Calculated 104 mg/dL (0-129) HDL Cholesterol 51 mg/dL (40-60) Cholesterol/HDL Ratio 3.0 Lipase 90 U/L (73-393) Thyroid Stimulating Hormone (TSH) 1.568 uIU/mL (0.358-3.74) Bedside Troponin I 0.10 ng/ml (<0.08) O2 Saturation 98 % (92-99) Arterial Blood pH 7.36 (7.35-7.45) Arterial Blood pCO2 at Patient Temp 41 mmHg (35-46) Arterial Blood pO2 at Patient Temp 123 mmHg (75-108) Arterial Blood HCO3 23 mmol/L (21-28) Arterial Blood Base Excess -3 mmol/L (-3-3) FiO2 50 Test 05/23/18 20:30 05/24/18 05:45 05/24/18 07:30 05/24/18 09:58 Troponin I Quantitative 36.155 ng/mL (0.000-0.055) White Blood Count 16.6 x10^3/uL (4.0-11.0) Red Blood Count 4.30 x10^6/uL (3.50-5.40) Hemoglobin 12.8 g/dL (12.0-15.5) Hematocrit 37.9 % (36.0-47.0) Mean Corpuscular Volume 88 fL (79-100) Mean Corpuscular Hemoglobin 30 pg (25-35) Mean Corpuscular Hemoglobin Concent 34 g/dL (31-37) Red Cell Distribution Width 14.5 % (11.5-14.5) Platelet Count 149 x10^3/uL (140-400) Neutrophils (%) (Auto) 76 % (31-73) Lymphocytes (%) (Auto) 12 % (24-48) Monocytes (%) (Auto) 12 % (0-9) Eosinophils (%) (Auto) 0 % (0-3) Basophils (%) (Auto) 0 % (0-3) Neutrophils # (Auto) 12.5 x10^3uL (1.8-7.7) Lymphocytes # (Auto) 2.0 x10^3/uL (1.0-4.8) Monocytes # (Auto) 1.9 x10^3/uL (0.0-1.1) Eosinophils # (Auto) 0.1 x10^3/uL (0.0-0.7) Basophils # (Auto) 0.1 x10^3/uL (0.0-0.2) Segmented Neutrophils % 79 % (35-66) Band Neutrophils % 1 % (0-9) Lymphocytes % 12 % (24-48) Monocytes % 8 % (0-10) Platelet Estimate Adequate (ADEQUATE) Large Platelets Occ Sodium Level 138 mmol/L (136-145) Potassium Level 3.1 mmol/L (3.5-5.1) Chloride Level 104 mmol/L (98-107) Carbon Dioxide Level 24 mmol/L (21-32) Anion Gap 10 (6-14) Blood Urea Nitrogen 10 mg/dL (7-20) Creatinine 0.5 mg/dL (0.6-1.0) Estimated GFR (Cockcroft-Gault) 135.3 Glucose Level 112 mg/dL (70-99) Calcium Level 7.4 mg/dL (8.5-10.1) Magnesium Level 1.8 mg/dL (1.8-2.4) O2 Saturation 99 % (92-99) Arterial Blood pH 7.43 (7.35-7.45) Arterial Blood pCO2 at Patient Temp 34 mmHg (35-46) Arterial Blood pO2 at Patient Temp 149 mmHg (75-108) Arterial Blood HCO3 22 mmol/L (21-28) Arterial Blood Base Excess -2 mmol/L (-3-3) FiO2 40 Activated Clotting Time 119 sec (92-181) Laboratory Tests Test 05/23/18 10:47 05/23/18 10:49 05/23/18 13:05 05/23/18 13:45 White Blood Count 11.0 x10^3/uL (4.0-11.0) Red Blood Count 4.86 x10^6/uL (3.50-5.40) Hemoglobin 14.2 g/dL (12.0-15.5) Hematocrit 42.4 % (36.0-47.0) Mean Corpuscular Volume 87 fL (79-100) Mean Corpuscular Hemoglobin 29 pg (25-35) Mean Corpuscular Hemoglobin Concent 34 g/dL (31-37) Red Cell Distribution Width 14.0 % (11.5-14.5) Platelet Count 170 x10^3/uL (140-400) Neutrophils (%) (Auto) 59 % (31-73) Lymphocytes (%) (Auto) 25 % (24-48) Monocytes (%) (Auto) 14 % (0-9) Eosinophils (%) (Auto) 2 % (0-3) Basophils (%) (Auto) 1 % (0-3) Neutrophils # (Auto) 6.4 x10^3uL (1.8-7.7) Lymphocytes # (Auto) 2.7 x10^3/uL (1.0-4.8) Monocytes # (Auto) 1.6 x10^3/uL (0.0-1.1) Eosinophils # (Auto) 0.2 x10^3/uL (0.0-0.7) Basophils # (Auto) 0.1 x10^3/uL (0.0-0.2) Prothrombin Time 12.8 SEC (11.7-14.0) Prothromb Time International Ratio 1.0 (0.8-1.1) Activated Partial Thromboplast Time 30 SEC (24-38) Sodium Level 138 mmol/L (136-145) Potassium Level 3.9 mmol/L (3.5-5.1) Chloride Level 102 mmol/L (98-107) Carbon Dioxide Level 23 mmol/L (21-32) Anion Gap 13 (6-14) Blood Urea Nitrogen 15 mg/dL (7-20) Creatinine 0.6 mg/dL (0.6-1.0) Estimated GFR (Cockcroft-Gault) 109.6 BUN/Creatinine Ratio 25 (6-20) Glucose Level 104 mg/dL (70-99) Hemoglobin A1c 5.2 % (4.8-5.6) Calcium Level 8.4 mg/dL (8.5-10.1) Magnesium Level 1.8 mg/dL (1.8-2.4) Total Bilirubin 0.3 mg/dL (0.2-1.0) Aspartate Amino Transf (AST/SGOT) 19 U/L (15-37) Alanine Aminotransferase (ALT/SGPT) 25 U/L (14-59) Alkaline Phosphatase 42 U/L (46-116) Creatine Kinase 78 U/L (26-192) Creatine Kinase MB (Mass) 1.0 ng/mL (0.0-3.6) Creatine Kinase MB Relative Index 1.3 % (0-4) Troponin I Quantitative 0.155 ng/mL (0.000-0.055) 14.312 ng/mL (0.000-0.055) FL-Amw-O-Type Natriuretic Peptide 46 pg/mL (0-124) Total Protein 7.1 g/dL (6.4-8.2) Albumin 3.4 g/dL (3.4-5.0) Albumin/Globulin Ratio 0.9 (1.0-1.7) Triglycerides Level 65 mg/dL (0-150) Cholesterol Level 155 mg/dL (0-200) LDL Cholesterol, Calculated 91 mg/dL (0-100) VLDL Cholesterol, Calculated 13 mg/dL (0-40) Non-HDL Cholesterol Calculated 104 mg/dL (0-129) HDL Cholesterol 51 mg/dL (40-60) Cholesterol/HDL Ratio 3.0 Lipase 90 U/L (73-393) Thyroid Stimulating Hormone (TSH) 1.568 uIU/mL (0.358-3.74) Bedside Troponin I 0.10 ng/ml (<0.08) O2 Saturation 98 % (92-99) Arterial Blood pH 7.36 (7.35-7.45) Arterial Blood pCO2 at Patient Temp 41 mmHg (35-46) Arterial Blood pO2 at Patient Temp 123 mmHg (75-108) Arterial Blood HCO3 23 mmol/L (21-28) Arterial Blood Base Excess -3 mmol/L (-3-3) FiO2 50 Test 05/23/18 20:30 05/24/18 05:45 05/24/18 07:30 05/24/18 09:58 Troponin I Quantitative 36.155 ng/mL (0.000-0.055) White Blood Count 16.6 x10^3/uL (4.0-11.0) Red Blood Count 4.30 x10^6/uL (3.50-5.40) Hemoglobin 12.8 g/dL (12.0-15.5) Hematocrit 37.9 % (36.0-47.0) Mean Corpuscular Volume 88 fL (79-100) Mean Corpuscular Hemoglobin 30 pg (25-35) Mean Corpuscular Hemoglobin Concent 34 g/dL (31-37) Red Cell Distribution Width 14.5 % (11.5-14.5) Platelet Count 149 x10^3/uL (140-400) Neutrophils (%) (Auto) 76 % (31-73) Lymphocytes (%) (Auto) 12 % (24-48) Monocytes (%) (Auto) 12 % (0-9) Eosinophils (%) (Auto) 0 % (0-3) Basophils (%) (Auto) 0 % (0-3) Neutrophils # (Auto) 12.5 x10^3uL (1.8-7.7) Lymphocytes # (Auto) 2.0 x10^3/uL (1.0-4.8) Monocytes # (Auto) 1.9 x10^3/uL (0.0-1.1) Eosinophils # (Auto) 0.1 x10^3/uL (0.0-0.7) Basophils # (Auto) 0.1 x10^3/uL (0.0-0.2) Segmented Neutrophils % 79 % (35-66) Band Neutrophils % 1 % (0-9) Lymphocytes % 12 % (24-48) Monocytes % 8 % (0-10) Platelet Estimate Adequate (ADEQUATE) Large Platelets Occ Sodium Level 138 mmol/L (136-145) Potassium Level 3.1 mmol/L (3.5-5.1) Chloride Level 104 mmol/L (98-107) Carbon Dioxide Level 24 mmol/L (21-32) Anion Gap 10 (6-14) Blood Urea Nitrogen 10 mg/dL (7-20) Creatinine 0.5 mg/dL (0.6-1.0) Estimated GFR (Cockcroft-Gault) 135.3 Glucose Level 112 mg/dL (70-99) Calcium Level 7.4 mg/dL (8.5-10.1) Magnesium Level 1.8 mg/dL (1.8-2.4) O2 Saturation 99 % (92-99) Arterial Blood pH 7.43 (7.35-7.45) Arterial Blood pCO2 at Patient Temp 34 mmHg (35-46) Arterial Blood pO2 at Patient Temp 149 mmHg (75-108) Arterial Blood HCO3 22 mmol/L (21-28) Arterial Blood Base Excess -2 mmol/L (-3-3) FiO2 40 Activated Clotting Time 119 sec (92-181) Comments CXR 05/24 no infiltrates Impression . 1. Acute respiratory failure secondary to cardiac arrhythmia and ST elevation myocardial infarction. 2. Status post emergent cardiac catheterization with dissection of left anterior descending artery, status post stenting. 3. Mild history of asthma on p.r.n. albuterol. 4. Abnormal chest x-ray with atelectasis in retrocardiac area. 5. History of idiopathic thrombocytopenic purpura, status post splenectomy. Plan . 1. Discussed with RN and . 2. AC mode. Once sheaths are out, CPAP trial. 3. bronchodilators. 4. Follow cardiology recommendations. 5. Watch hemodynamic status closely. CARMEN UMANZOR MD May 24, 2018 10:20
--- NOTE | 2018-05-24 11:30 | NUR ---
right groin arterial and venous sheaths removed by solder making laborer. hemostasis at 1028. fentanyl and propofol gtt decreased and stopped on pt. pt following commands. pt started on a c-pap trial as requested by dr guo.
[2018-05-24 12:07] LABS: BASE EXCESS ABG -1 mmol/L (-3-3); HCO3 ABG 21 mmol/L (21-28); PCO2 ABG 27 mmHg (35-46); PO2 ABG 133 mmHg (75-108); SAT O2 ABG 99 % (92-99)
[2018-05-24 12:18] LABS: FIO2 ABG 40%
[2018-05-24] MEDS: ONDANSETRON PF 4 MG/2 ML VIAL. IV PRN ×2 (13:26→21:22)
--- NOTE | 2018-05-24 13:28 | PDOC ---
CARDIO Progress Notes Date and Time Date of Service 05/24/18 Time of Evaluation 1215 Subjective Subjective: No Chest Pain, No shortness of breath, Other (sore throat) Vitals Vitals Vital Signs Date Time Temp Pulse Resp B/P (MAP) Pulse Ox O2 Delivery O2 Flow Rate FiO2 05/24/18 13:03 82 18 130/71 (90) 98 Nasal Cannula 3.0 05/24/18 10:00 98.8 98.8 Weight Weight [ ] Input and Output Intake and Output Intake and Output 05/24/18 07:00 Intake Total 1603.5 ml Output Total 2120 ml Balance -516.5 ml Intake Oral 0 ml IV Total 1603.5 ml Output Urine Total 2120 ml Laboratory Labs Laboratory Tests Test 05/23/18 13:45 05/23/18 20:30 05/24/18 05:45 05/24/18 07:30 Troponin I Quantitative 14.312 ng/mL (0.000-0.055) 36.155 ng/mL (0.000-0.055) White Blood Count 16.6 x10^3/uL (4.0-11.0) Red Blood Count 4.30 x10^6/uL (3.50-5.40) Hemoglobin 12.8 g/dL (12.0-15.5) Hematocrit 37.9 % (36.0-47.0) Mean Corpuscular Volume 88 fL (79-100) Mean Corpuscular Hemoglobin 30 pg (25-35) Mean Corpuscular Hemoglobin Concent 34 g/dL (31-37) Red Cell Distribution Width 14.5 % (11.5-14.5) Platelet Count 149 x10^3/uL (140-400) Neutrophils (%) (Auto) 76 % (31-73) Lymphocytes (%) (Auto) 12 % (24-48) Monocytes (%) (Auto) 12 % (0-9) Eosinophils (%) (Auto) 0 % (0-3) Basophils (%) (Auto) 0 % (0-3) Neutrophils # (Auto) 12.5 x10^3uL (1.8-7.7) Lymphocytes # (Auto) 2.0 x10^3/uL (1.0-4.8) Monocytes # (Auto) 1.9 x10^3/uL (0.0-1.1) Eosinophils # (Auto) 0.1 x10^3/uL (0.0-0.7) Basophils # (Auto) 0.1 x10^3/uL (0.0-0.2) Segmented Neutrophils % 79 % (35-66) Band Neutrophils % 1 % (0-9) Lymphocytes % 12 % (24-48) Monocytes % 8 % (0-10) Platelet Estimate Adequate (ADEQUATE) Large Platelets Occ Sodium Level 138 mmol/L (136-145) Potassium Level 3.1 mmol/L (3.5-5.1) Chloride Level 104 mmol/L (98-107) Carbon Dioxide Level 24 mmol/L (21-32) Anion Gap 10 (6-14) Blood Urea Nitrogen 10 mg/dL (7-20) Creatinine 0.5 mg/dL (0.6-1.0) Estimated GFR (Cockcroft-Gault) 135.3 Glucose Level 112 mg/dL (70-99) Calcium Level 7.4 mg/dL (8.5-10.1) Magnesium Level 1.8 mg/dL (1.8-2.4) O2 Saturation 99 % (92-99) Arterial Blood pH 7.43 (7.35-7.45) Arterial Blood pCO2 at Patient Temp 34 mmHg (35-46) Arterial Blood pO2 at Patient Temp 149 mmHg (75-108) Arterial Blood HCO3 22 mmol/L (21-28) Arterial Blood Base Excess -2 mmol/L (-3-3) FiO2 40 Test 05/24/18 09:58 05/24/18 12:00 Activated Clotting Time 119 sec (92-181) O2 Saturation 99 % (92-99) Arterial Blood pH 7.51 (7.35-7.45) Arterial Blood pCO2 at Patient Temp 27 mmHg (35-46) Arterial Blood pO2 at Patient Temp 133 mmHg (75-108) Arterial Blood HCO3 21 mmol/L (21-28) Arterial Blood Base Excess -1 mmol/L (-3-3) FiO2 40% Physical Exam HEENT: Neck Supple W Full Motion Chest: Symmetric LUNGS: Clear to Auscultation Heart: S1S2, RRR Abdomen: Soft N/T Extremities: No Edema Neurology: alert, oriented, follow commands Assessment Assessment 1. STEMI 2. Ventricular fibrillation arrest; on Amiodarone. No further significant arrhythmias noted overnight 3. Acute respiratory failure; s/p intubation. Now extubated 4. CAD; s/p PCI/BMS to LAD 5. Hypokalemia; replaced Recommendations Am Labs Monitor in ICU overnight Convert Amiodarone to 200mg BID Echo to assess LV systolic function Secondary prevention measures; add ASA, BB, and statin REGINE RAMIREZ APRN May 24, 2018 13:28
[2018-05-24] MEDS: ASPIRIN ENTERIC COATED 81 MG TABLET.DR. PO SCH (14:25)
[2018-05-24] MEDS: AMIODARONE HCL 200 MG TABLET. PO SCH ×2 (14:25→21:27)
--- NOTE | 2018-05-24 14:39 | NUR ---
SS following for discharge planning. SS reviewed pt chart. Pt is from home with spouse and is currently requiring oxygen. No discharge needs noted at this time. SS will continue to follow for discharge planning.
--- NOTE | 2018-05-24 14:40 | NUR ---
pt lying on right side with head of bed at a 45 degree angle. pt able to drink water without difficulty. voice clear after a drink of water. cardiac diet ordered for pt. at bedside. pt denies nausea at this time.
--- NOTE | 2018-05-24 16:21 | CARD ---
MR#: [id number] Date of Study: 05/24/2018 Ordering Physician: JUDY WOODRUFF, Referring Physician: Fred RYAN: Elly Soto Davidfranky APPROVED REPORT EXAM: Two-dimensional and M-mode echocardiogram with Doppler and color Doppler. Other Information Quality : GoodHR: 81bpm INDICATION CAD Status/Post CO 2D DIMENSIONS RVDd2.7 (2.9-3.5cm)Left Atrium(2D)3.6 (1.6-4.0cm) IVSd1.0 (0.7-1.1cm)Aortic Root(2D)2.6 (2.0-3.7cm) LVDd5.1 (3.9-5.9cm)LVOT Diameter2.1 (1.8-2.4cm) PWd1.1 (0.7-1.1cm)LVDs2.9 (2.5-4.0cm) FS (%) 42.9 %SV91.1 ml LVEF(%)73.7 (>50%) Aortic Valve AoV Peak Vazquez.133.0cm/sAoV VTI29.5cm AO Peak GR.7.1mmHgLVOT VTI 23.92cm AO Mean GR.5mmHg Mitral Valve MV E Dkxopyma24.7cm/sMV DECEL [id number] MV A Obcjszlg63.7cm/sE/A Ratio1.0 TDI Lateral E' P. V11.33cm/sMedial E' P. V9.91cm/s E/Lateral E'7.8E/Medial E'9.0 Tricuspid Valve TR P. Vmadibaw568mv/sRAP SYDEJZDV1bnRc TR Peak Gr.08zmKxZMUD43rhJz Pulmonary Vein S1 Altijfmf35.1cm/sS2 Lnydjkcr88.32cm/s D2 Qynzelxc50.3cm/sPVa [id number] LEFT VENTRICLE The left ventricle is normal size. There is normal left ventricular wall thickness. The left ventricu lar systolic function is moderately decreased. EF 35%. The distal 1/2 of the LV is severely hypokinet ic to akinetic. Cannot rule out laminal apical thrombus. The left ventricular diastolic function and filling is normal for age. RIGHT VENTRICLE The right ventricle is normal size. There is normal right ventricular wall thickness. The right ventr icular systolic function is normal. ATRIA The left atrium size is normal. The right atrium size is normal. The interatrial septum is intact wit h no evidence for an atrial septal defect or patent foramen ovale as noted on 2-D or Doppler imaging. AORTIC VALVE The aortic valve is normal in structure and function. Doppler and Color Flow revealed no significant aortic regurgitation. There is no significant aortic valvular stenosis. MITRAL VALVE The mitral valve is normal in structure and function. There is no evidence of mitral valve prolapse. There is no mitral valve stenosis. Doppler and Color-flow revealed trace mitral regurgitation. TRICUSPID VALVE The tricuspid valve is normal in structure and function. Doppler and Color Flow revealed trace tricus pid regurgitation with an estimated PAP of 28 mmHg. There is no tricuspid valve stenosis. PULMONIC VALVE The pulmonic valve is not well visualized. Doppler and Color Flow revealed no pulmonic valvular regur gitation. There is no pulmonic valvular stenosis. GREAT VESSELS The aortic root is normal in size. The IVC is normal in size and collapses >50% with inspiration. PERICARDIAL EFFUSION There is no evidence of significant pericardial effusion. Critical Notification Critical Value: No <Conclusion> The left ventricular systolic function is moderately decreased. EF 35%. The distal 1/2 of the LV is severely hypokinetic to akinetic. Cannot rule out laminal apical thrombus . Signed by : Juaquin Hale, Electronically Approved : 05/24/2018 16:21:07
--- NOTE | 2018-05-24 17:50 | NUR ---
pt continues to be nauseated and vomited 50 cc of undigested food. pt had zofran at 1330. pt requesting no more nausea medicine, "I am just so sensitive". offered to call if she changes her mind. pt sitting up in chair. pt transfered to chair with minimal assistance. at bedside.
--- NOTE | 2018-05-24 19:05 | NUR ---
Patient continues to complain of Nausea without vomiting, she states the Zofran did not help and is now willing to 'try something else'; Dr Albarran paged. Dr Albarran returned page, notified of above, orders received for Compazine 10MG IVP PRN Q6HRS and if no relief after 30MIN, may give Reglan 5MG IVP x1. See orders.
[2018-05-24] MEDS ORDERED: PROCHLORPERAZINE 10 MG/2 ML VIAL. IM PRN (19:15)
[2018-05-24] MEDS ORDERED: PROCHLORPERAZINE 10 MG/2 ML VIAL. IV PRN (19:15)
[2018-05-24] MEDS: ENOXAPARIN 40 MG/0.4 ML SYRINGE. SQ SCH (21:25)
--- NOTE | 2018-05-24 21:30 | NUR ---
Patient continues to be nauseated but states it has improved 'a little'. Discussed giving another dose of Zofran and dividing 2100 PO meds to decrease chance of N/V--patient agreeable. Amiodarone and Brilinta given, will plan to give Metoprolol and Lipitor ~2359.
[2018-05-24] MEDS: ATORVASTATIN CALCIUM 40 MG TABLET. PO SCH (23:57)
[2018-05-24] MEDS: METOPROLOL TART IMMED RELEASE 25 MG TABLET. PO SCH (23:59)
--- NOTE | 2018-05-24 23:59 | NUR ---
Patient reports nausea is gone; she was able to take Metoprolol and Lipitor without any difficulties. Patent notified to call RN for in any further nausea.
[2018-05-25] VITALS (14 sets, daily range): BP systolic 95–135; BP diastolic 61–85
[2018-05-25 05:21] LABS: HEMATOCRIT 38.9 % (36.0-47.0); HEMOGLOBIN 13.1 g/dL (12.0-15.5); RED BLOOD COUNT 4.46 x10^6/uL (3.50-5.40); RED CELL DISTRIBUTION WIDTH 14.4 % (11.5-14.5); WHITE BLOOD COUNT 14.3 x10^3/uL (4.0-11.0)
[2018-05-25 05:48] LABS: CALCIUM 7.8 mg/dL (8.5-10.1); CREATININE 0.6 mg/dL (0.6-1.0); GFR 109.6; MAGNESIUM 2.2 mg/dL (1.8-2.4); POTASSIUM 3.3 mmol/L (3.5-5.1)
--- NOTE | 2018-05-25 06:00 | NUR ---
After explanation to patient and , Estrella catheter removed without difficulty. Explained it may take up to 8 hours to void and to notify RN to assist getting OOB.
[2018-05-25] MEDS ORDERED: POTASSIUM CHLORIDE 20 MEQ/15 ML ORAL LIQUID. PEG ONE ×2 (08:45→14:30)
[2018-05-25] MEDS: AMIODARONE HCL 200 MG TABLET. PO SCH ×2 (08:47→20:55)
[2018-05-25] MEDS: METOPROLOL TART IMMED RELEASE 25 MG TABLET. PO SCH ×2 (08:47→20:56)
[2018-05-25] MEDS: ASPIRIN ENTERIC COATED 81 MG TABLET.DR. PO SCH (08:47)
[2018-05-25] MEDS: TICAGRELOR 90 MG TABLET. PO SCH ×2 (08:47→20:55)
[2018-05-25] MEDS: ONDANSETRON PF 4 MG/2 ML VIAL. IV PRN (08:52)
[2018-05-25] MEDS: ALBUTEROL SULFATE 2.5 MG/3 ML NEBU. NEB SCH ×4 (09:06→19:45)
--- NOTE | 2018-05-25 09:18 | PDOC ---
PROGRESS NOTES Chief Complaint Chief Complaint STEMI s/p cath with LAD occlusion with stent deployed Acute Hypoxic Resp Failure Hx of Asthma Hx of ITP s/p splenectomy PLAN: Likely extubation this morning pulm consult cards consulted defer heparin drip to cards Replace K start statin therapy anti-plt therapy per cards continue amio drip BMP and CBC stable TSH, lipid profile, a1c full code dvt ppx: heparin > 2 MN LOS due to STEMI, resp failure on vent History of Present Illness History of Present Illness 43-year-old female hx of asthma, ITP who presents with chest pain while swimming today. most hx obtained from as patient sedated on vent. states that patient had not been feeling well for past several days and saw PCP 2 days ago. noted to have leukocytosis. patient has amoxicllin at home due to hx of spleenectomy so took this bc wasn't feeling well. no reported fever cough, sob nausea vomiting or diarrhea. from [facility] as a STEMI activation. Patient reports she was swimming and suddenly experienced crushing chest pain and nausea. Patient's father having an AK in his 60s. no hx of DVT or PE. per patient has been exercising frequently. no hx of diabetes, HTN, HLD, or smoking history. prior to arrival EMS reports giving 324 mg of aspirin, 100 g of fentanyl, nitroglycerin sublingual 2, zofran 4mg, and 1 inch of Nitropaste. patient found to have STEMI on EKG in lV2 and V3. en route to crime lab technician patient found to be in vfib, subsequently intubated and shocked. given bolus of amio and started on amio drip and dopamine drip. also given bolus of heparin. 05/24/18: LAD occlusion and 1 stent deployed. returned to ICU on ventilator. currently on amio drip, dopamine drip. at bedside. She is feeling better today, no chest pain, no shortness of breath. Had posterior headache, turns out her hair tie was stuck in her hair. Plan: Oral amio, BB, DENNY/ARB, dual antiplatelet therapy. Need to know if there is an LV thrombus to consider oral anticoagulation as well. Ok for transfer to [facility] if ok with cardiology. Will need cardiac rehab to guide her further exercise routine. Advised her children contact [facility]lex[facility] - for cardiovascular evaluation in the future Vitals Vitals Vital Signs Date Time Temp Pulse Resp B/P (MAP) Pulse Ox O2 Delivery O2 Flow Rate FiO2 05/25/18 08:47 84 135/81 05/25/18 08:00 98.3 20 97 Room Air 98.3 05/24/18 17:00 3.0 Physical Exam General: moderate distress Heart: Regular rate Lungs: Clear Abdomen: Normal bowel sounds Labs LABS Laboratory Tests Test 05/24/18 09:58 05/24/18 12:00 05/25/18 04:30 Activated Clotting Time 119 sec (92-181) O2 Saturation 99 % (92-99) Arterial Blood pH 7.51 (7.35-7.45) Arterial Blood pCO2 at Patient Temp 27 mmHg (35-46) Arterial Blood pO2 at Patient Temp 133 mmHg (75-108) Arterial Blood HCO3 21 mmol/L (21-28) Arterial Blood Base Excess -1 mmol/L (-3-3) FiO2 40% White Blood Count 14.3 x10^3/uL (4.0-11.0) Red Blood Count 4.46 x10^6/uL (3.50-5.40) Hemoglobin 13.1 g/dL (12.0-15.5) Hematocrit 38.9 % (36.0-47.0) Mean Corpuscular Volume 87 fL (79-100) Mean Corpuscular Hemoglobin 30 pg (25-35) Mean Corpuscular Hemoglobin Concent 34 g/dL (31-37) Red Cell Distribution Width 14.4 % (11.5-14.5) Platelet Count 190 x10^3/uL (140-400) Sodium Level 139 mmol/L (136-145) Potassium Level 3.3 mmol/L (3.5-5.1) Chloride Level 105 mmol/L (98-107) Carbon Dioxide Level 24 mmol/L (21-32) Anion Gap 10 (6-14) Blood Urea Nitrogen 7 mg/dL (7-20) Creatinine 0.6 mg/dL (0.6-1.0) Estimated GFR (Cockcroft-Gault) 109.6 Glucose Level 109 mg/dL (70-99) Calcium Level 7.8 mg/dL (8.5-10.1) Magnesium Level 2.2 mg/dL (1.8-2.4) Assessment and Plan Assessmemt and Plan Problems Medical Problems: (1) STEMI (ST elevation myocardial infarction) Status: Acute Comment Review of Relevant I have reviewed the following items grant (where applicable) has been applied. Labs Laboratory Tests Test 05/23/18 10:47 05/23/18 10:49 05/23/18 13:05 05/23/18 13:45 White Blood Count 11.0 x10^3/uL (4.0-11.0) Red Blood Count 4.86 x10^6/uL (3.50-5.40) Hemoglobin 14.2 g/dL (12.0-15.5) Hematocrit 42.4 % (36.0-47.0) Mean Corpuscular Volume 87 fL (79-100) Mean Corpuscular Hemoglobin 29 pg (25-35) Mean Corpuscular Hemoglobin Concent 34 g/dL (31-37) Red Cell Distribution Width 14.0 % (11.5-14.5) Platelet Count 170 x10^3/uL (140-400) Neutrophils (%) (Auto) 59 % (31-73) Lymphocytes (%) (Auto) 25 % (24-48) Monocytes (%) (Auto) 14 % (0-9) Eosinophils (%) (Auto) 2 % (0-3) Basophils (%) (Auto) 1 % (0-3) Neutrophils # (Auto) 6.4 x10^3uL (1.8-7.7) Lymphocytes # (Auto) 2.7 x10^3/uL (1.0-4.8) Monocytes # (Auto) 1.6 x10^3/uL (0.0-1.1) Eosinophils # (Auto) 0.2 x10^3/uL (0.0-0.7) Basophils # (Auto) 0.1 x10^3/uL (0.0-0.2) Prothrombin Time 12.8 SEC (11.7-14.0) Prothromb Time International Ratio 1.0 (0.8-1.1) Activated Partial Thromboplast Time 30 SEC (24-38) Sodium Level 138 mmol/L (136-145) Potassium Level 3.9 mmol/L (3.5-5.1) Chloride Level 102 mmol/L (98-107) Carbon Dioxide Level 23 mmol/L (21-32) Anion Gap 13 (6-14) Blood Urea Nitrogen 15 mg/dL (7-20) Creatinine 0.6 mg/dL (0.6-1.0) Estimated GFR (Cockcroft-Gault) 109.6 BUN/Creatinine Ratio 25 (6-20) Glucose Level 104 mg/dL (70-99) Hemoglobin A1c 5.2 % (4.8-5.6) Calcium Level 8.4 mg/dL (8.5-10.1) Magnesium Level 1.8 mg/dL (1.8-2.4) Total Bilirubin 0.3 mg/dL (0.2-1.0) Aspartate Amino Transf (AST/SGOT) 19 U/L (15-37) Alanine Aminotransferase (ALT/SGPT) 25 U/L (14-59) Alkaline Phosphatase 42 U/L (46-116) Creatine Kinase 78 U/L (26-192) Creatine Kinase MB (Mass) 1.0 ng/mL (0.0-3.6) Creatine Kinase MB Relative Index 1.3 % (0-4) Troponin I Quantitative 0.155 ng/mL (0.000-0.055) 14.312 ng/mL (0.000-0.055) [id number]-[id number]-Type Natriuretic Peptide 46 pg/mL (0-124) Total Protein 7.1 g/dL (6.4-8.2) Albumin 3.4 g/dL (3.4-5.0) Albumin/Globulin Ratio 0.9 (1.0-1.7) Triglycerides Level 65 mg/dL (0-150) Cholesterol Level 155 mg/dL (0-200) LDL Cholesterol, Calculated 91 mg/dL (0-100) VLDL Cholesterol, Calculated 13 mg/dL (0-40) Non-HDL Cholesterol Calculated 104 mg/dL (0-129) HDL Cholesterol 51 mg/dL (40-60) Cholesterol/HDL Ratio 3.0 Lipase 90 U/L (73-393) Thyroid Stimulating Hormone (TSH) 1.568 uIU/mL (0.358-3.74) Bedside Troponin I 0.10 ng/ml (<0.08) O2 Saturation 98 % (92-99) Arterial Blood pH 7.36 (7.35-7.45) Arterial Blood pCO2 at Patient Temp 41 mmHg (35-46) Arterial Blood pO2 at Patient Temp 123 mmHg (75-108) Arterial Blood HCO3 23 mmol/L (21-28) Arterial Blood Base Excess -3 mmol/L (-3-3) FiO2 50 Test 05/23/18 19:30 05/23/18 20:30 05/24/18 05:45 05/24/18 07:30 Nasal Screen MRSA (PCR) Negative (Negative) Troponin I Quantitative 36.155 ng/mL (0.000-0.055) White Blood Count 16.6 x10^3/uL (4.0-11.0) Red Blood Count 4.30 x10^6/uL (3.50-5.40) Hemoglobin 12.8 g/dL (12.0-15.5) Hematocrit 37.9 % (36.0-47.0) Mean Corpuscular Volume 88 fL (79-100) Mean Corpuscular Hemoglobin 30 pg (25-35) Mean Corpuscular Hemoglobin Concent 34 g/dL (31-37) Red Cell Distribution Width 14.5 % (11.5-14.5) Platelet Count 149 x10^3/uL (140-400) Neutrophils (%) (Auto) 76 % (31-73) Lymphocytes (%) (Auto) 12 % (24-48) Monocytes (%) (Auto) 12 % (0-9) Eosinophils (%) (Auto) 0 % (0-3) Basophils (%) (Auto) 0 % (0-3) Neutrophils # (Auto) 12.5 x10^3uL (1.8-7.7) Lymphocytes # (Auto) 2.0 x10^3/uL (1.0-4.8) Monocytes # (Auto) 1.9 x10^3/uL (0.0-1.1) Eosinophils # (Auto) 0.1 x10^3/uL (0.0-0.7) Basophils # (Auto) 0.1 x10^3/uL (0.0-0.2) Segmented Neutrophils % 79 % (35-66) Band Neutrophils % 1 % (0-9) Lymphocytes % 12 % (24-48) Monocytes % 8 % (0-10) Platelet Estimate Adequate (ADEQUATE) Large Platelets Occ Sodium Level 138 mmol/L (136-145) Potassium Level 3.1 mmol/L (3.5-5.1) Chloride Level 104 mmol/L (98-107) Carbon Dioxide Level 24 mmol/L (21-32) Anion Gap 10 (6-14) Blood Urea Nitrogen 10 mg/dL (7-20) Creatinine 0.5 mg/dL (0.6-1.0) Estimated GFR (Cockcroft-Gault) 135.3 Glucose Level 112 mg/dL (70-99) Calcium Level 7.4 mg/dL (8.5-10.1) Magnesium Level 1.8 mg/dL (1.8-2.4) O2 Saturation 99 % (92-99) Arterial Blood pH 7.43 (7.35-7.45) Arterial Blood pCO2 at Patient Temp 34 mmHg (35-46) Arterial Blood pO2 at Patient Temp 149 mmHg (75-108) Arterial Blood HCO3 22 mmol/L (21-28) Arterial Blood Base Excess -2 mmol/L (-3-3) FiO2 40 Test 05/24/18 09:58 05/24/18 12:00 05/25/18 04:30 Activated Clotting Time 119 sec (92-181) O2 Saturation 99 % (92-99) Arterial Blood pH 7.51 (7.35-7.45) Arterial Blood pCO2 at Patient Temp 27 mmHg (35-46) Arterial Blood pO2 at Patient Temp 133 mmHg (75-108) Arterial Blood HCO3 21 mmol/L (21-28) Arterial Blood Base Excess -1 mmol/L (-3-3) FiO2 40% White Blood Count 14.3 x10^3/uL (4.0-11.0) Red Blood Count 4.46 x10^6/uL (3.50-5.40) Hemoglobin 13.1 g/dL (12.0-15.5) Hematocrit 38.9 % (36.0-47.0) Mean Corpuscular Volume 87 fL (79-100) Mean Corpuscular Hemoglobin 30 pg (25-35) Mean Corpuscular Hemoglobin Concent 34 g/dL (31-37) Red Cell Distribution Width 14.4 % (11.5-14.5) Platelet Count 190 x10^3/uL (140-400) Sodium Level 139 mmol/L (136-145) Potassium Level 3.3 mmol/L (3.5-5.1) Chloride Level 105 mmol/L (98-107) Carbon Dioxide Level 24 mmol/L (21-32) Anion Gap 10 (6-14) Blood Urea Nitrogen 7 mg/dL (7-20) Creatinine 0.6 mg/dL (0.6-1.0) Estimated GFR (Cockcroft-Gault) 109.6 Glucose Level 109 mg/dL (70-99) Calcium Level 7.8 mg/dL (8.5-10.1) Magnesium Level 2.2 mg/dL (1.8-2.4) Laboratory Tests Test 05/24/18 09:58 05/24/18 12:00 05/25/18 04:30 Activated Clotting Time 119 sec (92-181) O2 Saturation 99 % (92-99) Arterial Blood pH 7.51 (7.35-7.45) Arterial Blood pCO2 at Patient Temp 27 mmHg (35-46) Arterial Blood pO2 at Patient Temp 133 mmHg (75-108) Arterial Blood HCO3 21 mmol/L (21-28) Arterial Blood Base Excess -1 mmol/L (-3-3) FiO2 40% White Blood Count 14.3 x10^3/uL (4.0-11.0) Red Blood Count 4.46 x10^6/uL (3.50-5.40) Hemoglobin 13.1 g/dL (12.0-15.5) Hematocrit 38.9 % (36.0-47.0) Mean Corpuscular Volume 87 fL (79-100) Mean Corpuscular Hemoglobin 30 pg (25-35) Mean Corpuscular Hemoglobin Concent 34 g/dL (31-37) Red Cell Distribution Width 14.4 % (11.5-14.5) Platelet Count 190 x10^3/uL (140-400) Sodium Level 139 mmol/L (136-145) Potassium Level 3.3 mmol/L (3.5-5.1) Chloride Level 105 mmol/L (98-107) Carbon Dioxide Level 24 mmol/L (21-32) Anion Gap 10 (6-14) Blood Urea Nitrogen 7 mg/dL (7-20) Creatinine 0.6 mg/dL (0.6-1.0) Estimated GFR (Cockcroft-Gault) 109.6 Glucose Level 109 mg/dL (70-99) Calcium Level 7.8 mg/dL (8.5-10.1) Magnesium Level 2.2 mg/dL (1.8-2.4) Medications Current Medications Heparin Sodium (Porcine) (Heparin Sodium) 4,000 unit 1X ONCE IV Last administered on 05/23/18at 10:43; Start 05/23/18 at 11:00; Stop 05/23/18 at 11:01 ; Status DC Amiodarone HCl 900 mg/Dextrose 518 ml @ 33 mls/hr CONT PRN IV SEE I/O RECORD Last administered on 05/23/18at 11:25; Start 05/23/18 at 11:00; Stop 05/23/18 at 11:25; Status DC Midazolam HCl 100 ml @ 0 mls/hr 1X ONCE IV Last administered on 05/23/18at 11: 15; Start 05/23/18 at 11:15; Stop 05/23/18 at 14:42; Status DC Heparin Sodium/ Sodium Chloride 500 ml @ As Directed STK-MED ONCE .ROUTE ; Start 05/23/18 at 11:10; Stop 05/23/18 at 11:11; Status DC Etomidate (Amidate) 20 mg STK-MED ONCE IV ; Start 05/23/18 at 11:10; Stop at 11:11; Status DC Succinylcholine Chloride (Anectine) 200 mg STK-MED ONCE .ROUTE ; Start 05/23/18 at 11:10; Stop 05/23/18 at 11:11; Status DC Midazolam HCl (Versed) 2 mg 1X ONCE IV Last administered on 05/23/18at 11:27; Start 05/23/18 at 11:30; Stop 05/23/18 at 11:31; Status DC Sodium Chloride 1,000 ml @ 75 mls/hr [id number] IV Last administered on at 20:18; Start 05/23/18 at 11:30 Bivalirudin (Angiomax) 250 mg STK-MED ONCE IV ; Start 05/23/18 at 11:28; Stop at 11:29; Status DC Heparin Sodium/ Sodium Chloride (HEPARIN for ARTERIAL LINE FLUSH) 1,000 unit 1X ONCE IART Last administered on 05/23/18at 11:30; Start 05/23/18 at 11:30; Stop 05/23/18 at 11:36; Status DC Iodixanol (Visipaque 320) 100 ml 1X ONCE IART Last administered on 05/23/18at 11:30; Start 05/23/18 at 11:30; Stop 05/23/18 at 11:36; Status DC Bivalirudin (Angiomax) 250 mg 1X ONCE IV Last administered on 05/23/18at 11:30 ; Start 05/23/18 at 11:30; Stop 05/23/18 at 11:36; Status DC Lidocaine HCl (Lidocaine 1% 20ml Vial) 20 ml 1X ONCE INJ Last administered on 05/23/18at 11:30; Start 05/23/18 at 11:30; Stop 05/23/18 at 11:36; Status DC Dopamine HCl/ Dextrose 250 ml @ 5.443 mls/ hr CONT PRN IV SEE I/O RECORD Last administered on 05/23/18at 11:55; Start 05/23/18 at 11:45; Stop 05/23/18 at 14:42 ; Status DC Info (CONTRAST GIVEN -- Rx MONITORING) 1 each PRN DAILY PRN MC SEE COMMENTS; Start 05/23/18 at 11:45; Stop 05/25/18 at 11:44 Iodixanol (Visipaque 320) 100 ml STK-MED ONCE .ROUTE ; Start 05/23/18 at 11:52; Stop 05/23/18 at 11:53; Status DC Heparin Sodium/ Sodium Chloride 500 ml @ As Directed STK-MED ONCE .ROUTE ; Start 05/23/18 at 11:57; Stop 05/23/18 at 11:58; Status DC Ticagrelor (Brilinta) 180 mg 1X ONCE PO Last administered on 05/23/18at 14:00; Start 05/23/18 at 12:00; Stop 05/23/18 at 12:07; Status DC Nitroglycerin (Nitroglycerin) 400 mcg 1X ONCE IART Last administered on at 12:06; Start 05/23/18 at 12:15; Stop 05/23/18 at 12:16; Status DC Sodium Chloride (Normal Saline Flush) 3 ml QSHIFT PRN IV AFTER MEDS AND BLOOD DRAWS; Start 05/23/18 at 12:45; Stop 05/25/18 at 08:24; Status DC Sodium Chloride 1,000 ml @ 75 mls/hr [id number] IV Last administered on at 14:06; Start 05/23/18 at 12:31; Stop 05/24/18 at 02:50; Status DC Tirofiban/Sodium Chloride 100 ml @ 0 mls/hr CONT PRN IV PER PROTOCOL Last administered on 05/24/18at 03:49; Start 05/23/18 at 12:45; Stop 05/24/18 at 06:44 ; Status DC Ticagrelor (Brilinta) 90 mg BID PO Last administered on 05/25/18at 08:47; Start 05/23/18 at 23:00 Acetaminophen (Tylenol) 650 mg PRN Q6HRS PRN PO MILD PAIN / TEMP; Start at 12:45 Fentanyl Citrate (Fentanyl 2ml Vial) 50 mcg PRN Q1HR PRN IV MODERATE OR SEVERE PAIN; Start 05/23/18 at 12:45 Nitroglycerin (Nitrostat) 0.4 mg PRN Q5MIN PRN SL CHEST PAIN; Start 05/23/18 at 12:45 Amiodarone HCl 150 mg/Dextrose 103 ml @ 600 mls/hr 1X PRN PRN IV FOR VENTRICULAR TACHYCARDIA; Start 05/23/18 at 12:45 Lidocaine HCl (Lidocaine HCl 2% Abboject) 100 mg 1X PRN PRN IV FOR VENTRICULAR TACHYCARDIA; Start 05/23/18 at 12:45 Atropine Sulfate (ATROPINE 0.5mg SYRINGE) 0.5 mg PRN 1X PRN IV BRADYCARDIA; Start 05/23/18 at 12:45 Sodium Chloride (Normal Saline Flush) 3 ml QSHIFT PRN IV AFTER MEDS AND BLOOD DRAWS; Start 05/23/18 at 13:45 Fentanyl Citrate 30 ml @ 0 mls/hr CONT PRN PRN IV PER PROTOCOL; Start 05/23/18 at 14:15; Status Cancel Fentanyl Citrate 30 ml @ 0 mls/hr CONT PRN IV PER PROTOCOL Last administered on 05/24/18at 08:27; Start 05/23/18 at 14:30 Albuterol Sulfate (Ventolin Neb Soln) 2.5 mg RTQID NEB Last administered on at 07:23; Start 05/23/18 at 16:00 Propofol 100 ml @ 1.089 mls/ hr CONT PRN IV SEE I/O RECORD Last administered on 05/24/18 05:46; Start 05/23/18 at 14:45 Potassium Chloride (KCl Oral Soln) 40 meq 1X ONCE PEG Last administered on 08:36; Start 05/24/18 at 08:00; Stop 05/24/18 at 08:03; Status DC Magnesium Sulfate/ Dextrose 100 ml @ 100 mls/hr 1X ONCE IV Last administered on 05/24/18 08:28; Start 05/24/18 at 08:00; Stop 05/24/18 at 08:59; Status DC Enoxaparin Sodium (Lovenox 40mg Syringe) 40 mg Q24H SQ Last administered on 21:25; Start 05/24/18 at 21:00 Amiodarone HCl (Cordarone) 200 mg BID PO Last administered on 05/25/18 08:47; Start 05/24/18 at 11:00 Ondansetron HCl (Zofran) 4 mg PRN Q6HRS PRN IV NAUSEA/VOMITING, 1ST CHOICE Last administered on 05/24/18 21:22; Start 05/24/18 at 13:30 Aspirin (Ecotrin) 81 mg [id number] PO Last administered on 05/25/18 08:47; Start 05/24/18 at 13:30 Metoprolol Tartrate (Lopressor) 25 mg BID PO Last administered on 05/25/18 08: 47; Start 05/24/18 at 21:00 Atorvastatin Calcium (Lipitor) 40 mg QHS PO Last administered on 05/24/18 23: 57; Start 05/24/18 at 21:00 Prochlorperazine Edisylate (Compazine) 10 mg PRN Q6HRS PRN IM NAUSEA/VOMITING; Start 05/24/18 at 19:15; Stop 05/24/18 at 19:15; Status DC Prochlorperazine Edisylate (Compazine) 10 mg PRN Q6HRS PRN IV NAUSEA/VOMITING, 2ND CHOICE Last administered on 05/24/18 19:31; Start 05/24/18 at 19:15 Potassium Chloride (KCl Oral Soln) 40 meq 1X ONCE PEG ; Start 05/25/18 at 08:45 ; Stop 05/25/18 at 08:46; Status DC Vitals/I & O Vital Sign - Last 24 Hours 05/24/18 05/24/18 05/24/18 05/24/18 09:00 09:00 10:00 10:15 Temp 98.8 98.8 Pulse 90 77 87 Resp 14 14 14 14 B/P (MAP) 138/77 (97) 132/72 (92) 124/62 (82) Pulse Ox 100 100 99 99 O2 Delivery Ventilator Ventilator Ventilator 05/24/18 05/24/18 05/24/18 05/24/18 10:30 10:45 11:00 11:30 Pulse 84 86 80 Resp 14 14 14 B/P (MAP) 123/60 (81) 131/65 (87) 126/86 (99) Pulse Ox 100 100 100 100 O2 Delivery Ventilator Ventilator Ventilator Ventilator 05/24/18 05/24/18 05/24/18 05/24/18 11:30 12:00 12:00 13:03 Pulse 80 84 82 Resp 14 20 18 B/P (MAP) 126/86 (99) 136/84 (101) 130/71 (90) Pulse Ox 100 100 98 O2 Delivery Ventilator Mechanical Ventilator BiPAP/CPAP Nasal Cannula O2 Flow Rate 3.0 05/24/18 05/24/18 05/24/18 05/24/18 14:00 14:25 15:00 16:00 Temp 98.8 98.8 Pulse 88 82 82 80 Resp 18 16 16 B/P (MAP) 137/73 (94) 130/71 140/68 (92) 128/67 (87) Pulse Ox 97 98 99 O2 Delivery Nasal Cannula Nasal Cannula Nasal Cannula O2 Flow Rate 3.0 3.0 3.0 05/24/18 05/24/18 05/24/18 05/24/18 16:24 17:00 18:00 19:00 Pulse 68 68 88 Resp 15 15 16 B/P (MAP) 116/59 (78) 118/63 (81) 123/68 (86) Pulse Ox 98 98 98 O2 Delivery Nasal Cannula Nasal Cannula Room Air Room Air O2 Flow Rate 3.0 3.0 05/24/18 05/24/18 05/24/18 05/24/18 20:00 20:00 21:00 21:27 Temp 98.7 98.7 Pulse 65 80 95 Resp 14 14 B/P (MAP) 133/70 (91) 122/67 (85) 127/87 Pulse Ox 95 94 O2 Delivery Room Air Room Air Room Air 05/24/18 05/24/18 05/24/18 05/24/18 22:00 23:00 23:59 23:59 Temp 98.6 98.6 Pulse 75 77 90 90 Resp 14 16 16 B/P (MAP) 121/66 (84) 124/78 (93) 132/65 132/65 (87) Pulse Ox 94 95 97 O2 Delivery Room Air Room Air Room Air 05/24/18 05/25/18 05/25/18 05/25/18 23:59 01:00 02:00 03:00 Pulse 65 62 76 Resp 14 14 16 B/P (MAP) 120/66 (84) 108/62 (77) 122/76 (91) Pulse Ox 95 95 98 O2 Delivery Room Air Room Air Room Air Room Air 05/25/18 05/25/18 05/25/18 05/25/18 04:00 04:00 05:00 06:00 Temp 98.6 98.6 Pulse 77 69 75 Resp 18 16 18 B/P (MAP) 134/75 (94) 118/61 (80) 123/68 (86) Pulse Ox 94 95 95 O2 Delivery Room Air Room Air Room Air Room Air 05/25/18 05/25/18 05/25/18 05/25/18 07:00 08:00 08:00 08:47 Temp 98.3 98.3 Pulse 83 84 84 Resp 20 20 B/P (MAP) 112/81 (91) 135/81 (99) 135/81 Pulse Ox 96 97 O2 Delivery Room Air Room Air Room Air 05/25/18 08:47 Pulse 84 B/P (MAP) 135/81 Intake and Output 05/24/18 05/24/18 05/25/18 15:00 23:00 07:00 Intake Total 530 ml 1232 ml 1202 ml Output Total 515 ml 1025 ml 710 ml Balance 15 ml 207 ml 492 ml Images ECHO - The left ventricular systolic function is moderately decreased. EF 35%. The distal 1/2 of the LV is severely hypokinetic to akinetic. Cannot rule out laminal apical thrombus. GLORIA ROCHA MD May 25, 2018 09:18
--- NOTE | 2018-05-25 09:25 | PDOC ---
PULMONARY PROGRESS NOTES Subjective extubated 05/24 doing well, on canula Vitals Vital Signs Date Time Temp Pulse Resp B/P (MAP) Pulse Ox O2 Delivery O2 Flow Rate FiO2 05/25/18 09:07 97 Room Air 05/25/18 08:47 84 135/81 05/25/18 08:00 98.3 20 98.3 05/24/18 17:00 3.0 ROS: No Chest Pain, No Increase Cough General: Alert, No acute distress Lungs: Clear Cardiovascular: S1 Abdomen: Soft Neuro Exam: Alert Extremities: No Edema Skin: Warm Labs Laboratory Tests Test 05/23/18 10:47 05/23/18 10:49 05/23/18 13:05 05/23/18 13:45 White Blood Count 11.0 x10^3/uL (4.0-11.0) Red Blood Count 4.86 x10^6/uL (3.50-5.40) Hemoglobin 14.2 g/dL (12.0-15.5) Hematocrit 42.4 % (36.0-47.0) Mean Corpuscular Volume 87 fL (79-100) Mean Corpuscular Hemoglobin 29 pg (25-35) Mean Corpuscular Hemoglobin Concent 34 g/dL (31-37) Red Cell Distribution Width 14.0 % (11.5-14.5) Platelet Count 170 x10^3/uL (140-400) Neutrophils (%) (Auto) 59 % (31-73) Lymphocytes (%) (Auto) 25 % (24-48) Monocytes (%) (Auto) 14 % (0-9) Eosinophils (%) (Auto) 2 % (0-3) Basophils (%) (Auto) 1 % (0-3) Neutrophils # (Auto) 6.4 x10^3uL (1.8-7.7) Lymphocytes # (Auto) 2.7 x10^3/uL (1.0-4.8) Monocytes # (Auto) 1.6 x10^3/uL (0.0-1.1) Eosinophils # (Auto) 0.2 x10^3/uL (0.0-0.7) Basophils # (Auto) 0.1 x10^3/uL (0.0-0.2) Prothrombin Time 12.8 SEC (11.7-14.0) Prothromb Time International Ratio 1.0 (0.8-1.1) Activated Partial Thromboplast Time 30 SEC (24-38) Sodium Level 138 mmol/L (136-145) Potassium Level 3.9 mmol/L (3.5-5.1) Chloride Level 102 mmol/L (98-107) Carbon Dioxide Level 23 mmol/L (21-32) Anion Gap 13 (6-14) Blood Urea Nitrogen 15 mg/dL (7-20) Creatinine 0.6 mg/dL (0.6-1.0) Estimated GFR (Cockcroft-Gault) 109.6 BUN/Creatinine Ratio 25 (6-20) Glucose Level 104 mg/dL (70-99) Hemoglobin A1c 5.2 % (4.8-5.6) Calcium Level 8.4 mg/dL (8.5-10.1) Magnesium Level 1.8 mg/dL (1.8-2.4) Total Bilirubin 0.3 mg/dL (0.2-1.0) Aspartate Amino Transf (AST/SGOT) 19 U/L (15-37) Alanine Aminotransferase (ALT/SGPT) 25 U/L (14-59) Alkaline Phosphatase 42 U/L (46-116) Creatine Kinase 78 U/L (26-192) Creatine Kinase MB (Mass) 1.0 ng/mL (0.0-3.6) Creatine Kinase MB Relative Index 1.3 % (0-4) Troponin I Quantitative 0.155 ng/mL (0.000-0.055) 14.312 ng/mL (0.000-0.055) YP-Qdb-R-Type Natriuretic Peptide 46 pg/mL (0-124) Total Protein 7.1 g/dL (6.4-8.2) Albumin 3.4 g/dL (3.4-5.0) Albumin/Globulin Ratio 0.9 (1.0-1.7) Triglycerides Level 65 mg/dL (0-150) Cholesterol Level 155 mg/dL (0-200) LDL Cholesterol, Calculated 91 mg/dL (0-100) VLDL Cholesterol, Calculated 13 mg/dL (0-40) Non-HDL Cholesterol Calculated 104 mg/dL (0-129) HDL Cholesterol 51 mg/dL (40-60) Cholesterol/HDL Ratio 3.0 Lipase 90 U/L (73-393) Thyroid Stimulating Hormone (TSH) 1.568 uIU/mL (0.358-3.74) Bedside Troponin I 0.10 ng/ml (<0.08) O2 Saturation 98 % (92-99) Arterial Blood pH 7.36 (7.35-7.45) Arterial Blood pCO2 at Patient Temp 41 mmHg (35-46) Arterial Blood pO2 at Patient Temp 123 mmHg (75-108) Arterial Blood HCO3 23 mmol/L (21-28) Arterial Blood Base Excess -3 mmol/L (-3-3) FiO2 50 Test 05/23/18 19:30 05/23/18 20:30 05/24/18 05:45 05/24/18 07:30 Nasal Screen MRSA (PCR) Negative (Negative) Troponin I Quantitative 36.155 ng/mL (0.000-0.055) White Blood Count 16.6 x10^3/uL (4.0-11.0) Red Blood Count 4.30 x10^6/uL (3.50-5.40) Hemoglobin 12.8 g/dL (12.0-15.5) Hematocrit 37.9 % (36.0-47.0) Mean Corpuscular Volume 88 fL (79-100) Mean Corpuscular Hemoglobin 30 pg (25-35) Mean Corpuscular Hemoglobin Concent 34 g/dL (31-37) Red Cell Distribution Width 14.5 % (11.5-14.5) Platelet Count 149 x10^3/uL (140-400) Neutrophils (%) (Auto) 76 % (31-73) Lymphocytes (%) (Auto) 12 % (24-48) Monocytes (%) (Auto) 12 % (0-9) Eosinophils (%) (Auto) 0 % (0-3) Basophils (%) (Auto) 0 % (0-3) Neutrophils # (Auto) 12.5 x10^3uL (1.8-7.7) Lymphocytes # (Auto) 2.0 x10^3/uL (1.0-4.8) Monocytes # (Auto) 1.9 x10^3/uL (0.0-1.1) Eosinophils # (Auto) 0.1 x10^3/uL (0.0-0.7) Basophils # (Auto) 0.1 x10^3/uL (0.0-0.2) Segmented Neutrophils % 79 % (35-66) Band Neutrophils % 1 % (0-9) Lymphocytes % 12 % (24-48) Monocytes % 8 % (0-10) Platelet Estimate Adequate (ADEQUATE) Large Platelets Occ Sodium Level 138 mmol/L (136-145) Potassium Level 3.1 mmol/L (3.5-5.1) Chloride Level 104 mmol/L (98-107) Carbon Dioxide Level 24 mmol/L (21-32) Anion Gap 10 (6-14) Blood Urea Nitrogen 10 mg/dL (7-20) Creatinine 0.5 mg/dL (0.6-1.0) Estimated GFR (Cockcroft-Gault) 135.3 Glucose Level 112 mg/dL (70-99) Calcium Level 7.4 mg/dL (8.5-10.1) Magnesium Level 1.8 mg/dL (1.8-2.4) O2 Saturation 99 % (92-99) Arterial Blood pH 7.43 (7.35-7.45) Arterial Blood pCO2 at Patient Temp 34 mmHg (35-46) Arterial Blood pO2 at Patient Temp 149 mmHg (75-108) Arterial Blood HCO3 22 mmol/L (21-28) Arterial Blood Base Excess -2 mmol/L (-3-3) FiO2 40 Test 05/24/18 09:58 05/24/18 12:00 05/25/18 04:30 Activated Clotting Time 119 sec (92-181) O2 Saturation 99 % (92-99) Arterial Blood pH 7.51 (7.35-7.45) Arterial Blood pCO2 at Patient Temp 27 mmHg (35-46) Arterial Blood pO2 at Patient Temp 133 mmHg (75-108) Arterial Blood HCO3 21 mmol/L (21-28) Arterial Blood Base Excess -1 mmol/L (-3-3) FiO2 40% White Blood Count 14.3 x10^3/uL (4.0-11.0) Red Blood Count 4.46 x10^6/uL (3.50-5.40) Hemoglobin 13.1 g/dL (12.0-15.5) Hematocrit 38.9 % (36.0-47.0) Mean Corpuscular Volume 87 fL (79-100) Mean Corpuscular Hemoglobin 30 pg (25-35) Mean Corpuscular Hemoglobin Concent 34 g/dL (31-37) Red Cell Distribution Width 14.4 % (11.5-14.5) Platelet Count 190 x10^3/uL (140-400) Sodium Level 139 mmol/L (136-145) Potassium Level 3.3 mmol/L (3.5-5.1) Chloride Level 105 mmol/L (98-107) Carbon Dioxide Level 24 mmol/L (21-32) Anion Gap 10 (6-14) Blood Urea Nitrogen 7 mg/dL (7-20) Creatinine 0.6 mg/dL (0.6-1.0) Estimated GFR (Cockcroft-Gault) 109.6 Glucose Level 109 mg/dL (70-99) Calcium Level 7.8 mg/dL (8.5-10.1) Magnesium Level 2.2 mg/dL (1.8-2.4) Laboratory Tests Test 05/24/18 09:58 05/24/18 12:00 05/25/18 04:30 Activated Clotting Time 119 sec (92-181) O2 Saturation 99 % (92-99) Arterial Blood pH 7.51 (7.35-7.45) Arterial Blood pCO2 at Patient Temp 27 mmHg (35-46) Arterial Blood pO2 at Patient Temp 133 mmHg (75-108) Arterial Blood HCO3 21 mmol/L (21-28) Arterial Blood Base Excess -1 mmol/L (-3-3) FiO2 40% White Blood Count 14.3 x10^3/uL (4.0-11.0) Red Blood Count 4.46 x10^6/uL (3.50-5.40) Hemoglobin 13.1 g/dL (12.0-15.5) Hematocrit 38.9 % (36.0-47.0) Mean Corpuscular Volume 87 fL (79-100) Mean Corpuscular Hemoglobin 30 pg (25-35) Mean Corpuscular Hemoglobin Concent 34 g/dL (31-37) Red Cell Distribution Width 14.4 % (11.5-14.5) Platelet Count 190 x10^3/uL (140-400) Sodium Level 139 mmol/L (136-145) Potassium Level 3.3 mmol/L (3.5-5.1) Chloride Level 105 mmol/L (98-107) Carbon Dioxide Level 24 mmol/L (21-32) Anion Gap 10 (6-14) Blood Urea Nitrogen 7 mg/dL (7-20) Creatinine 0.6 mg/dL (0.6-1.0) Estimated GFR (Cockcroft-Gault) 109.6 Glucose Level 109 mg/dL (70-99) Calcium Level 7.8 mg/dL (8.5-10.1) Magnesium Level 2.2 mg/dL (1.8-2.4) Comments CXR 05/24 no infiltrates Impression . 1. Acute respiratory failure secondary to cardiac arrhythmia and ST elevation myocardial infarction. 2. Status post emergent cardiac catheterization with dissection of left anterior descending artery, status post stenting. 3. Mild history of asthma on p.r.n. albuterol. 4. Abnormal chest x-ray with atelectasis in retrocardiac area. 5. History of idiopathic thrombocytopenic purpura, status post splenectomy. Plan . 1. Discussed with RN and . 2. Doing well since extubation 3. bronchodilators. 4. Follow cardiology recommendations. 5. stable, transfer to floor if ok with cardiology CARMEN UMANZOR MD May 25, 2018 09:25
[2018-05-25] MEDS: IV NORMAL SALINE 1000ML BAG 1,000 ML IV SCH (11:08)
--- NOTE | 2018-05-25 11:27 | PDOC ---
REGINE RAMIREZ RADIOLOGIC TECHNICIAN 05/25/18 1127: CARDIO Progress Notes Date and Time Date of Service 05/25/18 Time of Evaluation 1050 Subjective Subjective: No Chest Pain, No shortness of breath, Other (feeling better today) Vitals Vitals Vital Signs Date Time Temp Pulse Resp B/P (MAP) Pulse Ox O2 Delivery O2 Flow Rate FiO2 05/25/18 10:00 80 130/78 (95) Room Air 05/25/18 09:07 97 05/25/18 08:00 98.3 20 98.3 05/24/18 17:00 3.0 Weight Weight [ ] Input and Output Intake and Output Intake and Output 05/25/18 07:00 Intake Total 2964 ml Output Total 2250 ml Balance 714 ml Intake Oral 560 ml IV Total 2254 ml Blood Product IV Normal Saline Flush 150 ml Output Urine Total 1865 ml Emesis 50 ml Oral Regurgitation 335 ml Laboratory Labs Laboratory Tests Test 05/24/18 12:00 05/25/18 04:30 O2 Saturation 99 % (92-99) Arterial Blood pH 7.51 (7.35-7.45) Arterial Blood pCO2 at Patient Temp 27 mmHg (35-46) Arterial Blood pO2 at Patient Temp 133 mmHg (75-108) Arterial Blood HCO3 21 mmol/L (21-28) Arterial Blood Base Excess -1 mmol/L (-3-3) FiO2 40% White Blood Count 14.3 x10^3/uL (4.0-11.0) Red Blood Count 4.46 x10^6/uL (3.50-5.40) Hemoglobin 13.1 g/dL (12.0-15.5) Hematocrit 38.9 % (36.0-47.0) Mean Corpuscular Volume 87 fL (79-100) Mean Corpuscular Hemoglobin 30 pg (25-35) Mean Corpuscular Hemoglobin Concent 34 g/dL (31-37) Red Cell Distribution Width 14.4 % (11.5-14.5) Platelet Count 190 x10^3/uL (140-400) Sodium Level 139 mmol/L (136-145) Potassium Level 3.3 mmol/L (3.5-5.1) Chloride Level 105 mmol/L (98-107) Carbon Dioxide Level 24 mmol/L (21-32) Anion Gap 10 (6-14) Blood Urea Nitrogen 7 mg/dL (7-20) Creatinine 0.6 mg/dL (0.6-1.0) Estimated GFR (Cockcroft-Gault) 109.6 Glucose Level 109 mg/dL (70-99) Calcium Level 7.8 mg/dL (8.5-10.1) Magnesium Level 2.2 mg/dL (1.8-2.4) Physical Exam HEENT: Neck Supple W Full Motion Chest: Symmetric LUNGS: Clear to Auscultation Heart: S1S2, RRR Abdomen: Soft N/T Extremities: No Edema Neurology: alert, oriented, follow commands Assessment Assessment 1. STEMI 2. Ventricular fibrillation arrest; on Amiodarone. No further significant arrhythmias noted overnight 3. Acute respiratory failure; s/p intubation. Extubated 05/24 4. CAD; s/p PCI/BMS to LAD. 5. ICM; Echo revealed LVEF 35%. Apical thrombus cannot be ruled out. Compensated. 5. Hypokalemia; replaced Recommendations May transfer to [facility] Secondary prevention measures; ASA, Brilinta, BB, and statin Add ACEi given ICM Limited echo with contrast for further evaluation of possible apical thrombus Re-evaluate LVEF in 3 months with outpatient echo. ANH KEATING MD 05/25/18 1813: CARDIO Progress Notes Plan Plan Patient seen and examined. Agree with above nurse practitioner note. Continue current medications. We will plan to refer her to the [facility] SCAD clinic. Supportive care. Will discuss lifevest tomorrow prior to DC. REGINE RAMIREZ APRN May 25, 2018 11:27 ANH KEATING MD May 25, 2018 18:13
--- NOTE | 2018-05-25 13:08 | NUR ---
Activation started/tolerates well w minimal pain right groin . Hemostasis maintained,w/o pulse deficiet with sheath removal over 24 H ago. Ok'd to trans to stepdown unit. Will shower after transfer to [facility].
[2018-05-25] MEDS: LISINOPRIL 5 MG TABLET. PO SCH (13:49)
[2018-05-25] MEDS ORDERED: PERFLUTREN PROTEIN-A MICROSPHR 0.22 MG/ML 3 ML VIAL. IV ONE (13:51)
[2018-05-25] MEDS ORDERED: PERFLUTREN PROTEIN-A MICROSPHR 0.22 MG/ML 3 ML VIAL. IV PRN (14:00)
--- NOTE | 2018-05-25 14:34 | NUR ---
report given to AKILAH Hall. pt transferred to 204.
--- NOTE | 2018-05-25 18:02 | CARD ---
MR#: [id number] Date of Study: 05/25/2018 Ordering Physician: REGINE RAMIREZ, Referring Physician: ELLYN SLADE Tech: Kami Silver RDCS APPROVED REPORT EXAM: LIMITED Two-dimensional echocardiogram with contrast. Other Information Quality : GoodHR: 95bpm Rhythm : NSR INDICATION Possible apical thrombus Echo Enhancing Agent Indication: Rule out thrombus Agent/Amount Used: Optison 1mL 2D DIMENSIONS RVDd2.9 (2.9-3.5cm)IVSd0.9 (0.7-1.1cm) LVDd5.4 (3.9-5.9cm)PWd0.9 (0.7-1.1cm) LVDs3.0 (2.5-4.0cm)FS (%) 27.5 % SV73.5 mlLVEF(%)40.0 (>50%) LEFT VENTRICLE The left ventricle is normal size. There is normal left ventricular wall thickness. The ejection frac tion is moderate to severely impaired. The Ejection Fraction is 35%. Basal segment wall motion is wit hin normal limits. The mid to distal LV and apex are severely hypokinetic. No left ventricular thromb us is noted. No left ventricle thrombus noted on this study. RIGHT VENTRICLE The right ventricle is normal size. There is normal right ventricular wall thickness. The right ventr icular systolic function is normal. ATRIA The left atrium size is normal. The right atrium size is normal. The interatrial septum is intact wit h no evidence for an atrial septal defect or patent foramen ovale as noted on 2-D or Doppler imaging. GREAT VESSELS The aortic root is normal in size. The ascending aorta is normal in size. PERICARDIAL EFFUSION There is no evidence of significant pericardial effusion. Critical Notification Critical Value: No <Conclusion> The ejection fraction is moderate to severely impaired. The Ejection Fraction is 35%. Basal segment wall motion is within normal limits. The mid to distal LV and apex are severely hypokin etic. No left ventricular thrombus is noted. Limited study only. Signed by : Juaquin Hale, Electronically Approved : 05/25/2018 18:02:03
[2018-05-25] MEDS: ATORVASTATIN CALCIUM 40 MG TABLET. PO SCH (20:55)
[2018-05-25] MEDS: ENOXAPARIN 40 MG/0.4 ML SYRINGE. SQ SCH (20:57)
[2018-05-26] MEDS: IV NORMAL SALINE 1000ML BAG 1,000 ML IV SCH ×2 (00:28→13:48)
[2018-05-26 02:46] VITALS: BP 116/80
[2018-05-26] MEDS: ALBUTEROL SULFATE 2.5 MG/3 ML NEBU. NEB SCH ×2 (07:16→11:23)
[2018-05-26 07:26] VITALS: BP 119/69
--- NOTE | 2018-05-26 07:47 | PDOC ---
PULMONARY PROGRESS NOTES Subjective extubated 05/24 sob better, has occ cough, no pain Vitals Vital Signs Date Time Temp Pulse Resp B/P (MAP) Pulse Ox O2 Delivery O2 Flow Rate FiO2 05/26/18 07:26 97.8 94 18 119/69 (86) Room Air 97.8 05/26/18 07:16 98 ROS: No Chest Pain, No Increase Cough General: Alert, No acute distress Lungs: Crackles Cardiovascular: S1, S2 Abdomen: Soft, Non-tender Neuro Exam: Alert Extremities: No Edema Skin: Warm Labs Laboratory Tests Test 05/24/18 09:58 05/24/18 12:00 05/25/18 04:30 Activated Clotting Time 119 sec (92-181) O2 Saturation 99 % (92-99) Arterial Blood pH 7.51 (7.35-7.45) Arterial Blood pCO2 at Patient Temp 27 mmHg (35-46) Arterial Blood pO2 at Patient Temp 133 mmHg (75-108) Arterial Blood HCO3 21 mmol/L (21-28) Arterial Blood Base Excess -1 mmol/L (-3-3) FiO2 40% White Blood Count 14.3 x10^3/uL (4.0-11.0) Red Blood Count 4.46 x10^6/uL (3.50-5.40) Hemoglobin 13.1 g/dL (12.0-15.5) Hematocrit 38.9 % (36.0-47.0) Mean Corpuscular Volume 87 fL (79-100) Mean Corpuscular Hemoglobin 30 pg (25-35) Mean Corpuscular Hemoglobin Concent 34 g/dL (31-37) Red Cell Distribution Width 14.4 % (11.5-14.5) Platelet Count 190 x10^3/uL (140-400) Sodium Level 139 mmol/L (136-145) Potassium Level 3.3 mmol/L (3.5-5.1) Chloride Level 105 mmol/L (98-107) Carbon Dioxide Level 24 mmol/L (21-32) Anion Gap 10 (6-14) Blood Urea Nitrogen 7 mg/dL (7-20) Creatinine 0.6 mg/dL (0.6-1.0) Estimated GFR (Cockcroft-Gault) 109.6 Glucose Level 109 mg/dL (70-99) Calcium Level 7.8 mg/dL (8.5-10.1) Magnesium Level 2.2 mg/dL (1.8-2.4) Comments CXR 05/24 no infiltrates Impression . 1. Acute respiratory failure secondary to cardiac arrhythmia and ST elevation myocardial infarction. 2. Status post emergent cardiac catheterization with dissection of left anterior descending artery, status post stenting. 3. Mild history of asthma on p.r.n. albuterol. 4. Abnormal chest x-ray with atelectasis in retrocardiac area. 5. History of idiopathic thrombocytopenic purpura, status post splenectomy. Plan . 1. 02 titration 2. Doing well since extubation 3. bronchodilators. atrovent only 4. Follow cardiology recommendations. 5. increase activity 6. lovenox for dvt prophylaxis discussed w pt, rn ALINA CARTER MD May 26, 2018 07:47
[2018-05-26] MEDS: TICAGRELOR 90 MG TABLET. PO SCH (08:23)
[2018-05-26] MEDS: LISINOPRIL 5 MG TABLET. PO SCH (08:24)
[2018-05-26] MEDS: METOPROLOL TART IMMED RELEASE 25 MG TABLET. PO SCH (08:24)
[2018-05-26] MEDS: AMIODARONE HCL 200 MG TABLET. PO SCH (08:25)
[2018-05-26] MEDS: ASPIRIN ENTERIC COATED 81 MG TABLET.DR. PO SCH (08:25)
[2018-05-26 11:30] VITALS: BP 120/55
--- NOTE | 2018-05-26 11:40 | PDOC ---
CARDIOLOGY PROGRESS NOTE SUBJECTIVE: No acute events overnight. OBJECTIVE: Vital SIgns: Vital Signs Date Time Temp Pulse Resp B/P (MAP) Pulse Ox O2 Delivery O2 Flow Rate FiO2 05/26/18 11:30 97.7 75 20 120/55 (76) Room Air 97.7 05/26/18 11:24 99 I & O Intake and Output 05/26/18 06:59 Intake Total 940 ml Output Total 150 ml Balance 790 ml Intake Oral 940 ml Output Urine Total 150 ml Objective: GEN.: No apparent distress. Alert and oriented. HEENT: Head is normocephalic, atraumatic NECK: Supple. LUNGS: Clear to auscultation. HEART: RRR, S1, S2 present. Peripheral pulses intact ABDOMEN: Soft, nontender. Positive bowel sounds. EXTREMITIES: Without any cyanosis. NEUROLOGIC: Normal speech, normal tone PSYCHIATRIC: Normal affect, normal mood. SKIN: No ulcerations CURRENT MEDICATIONS: ASA 81mg daily Ticagrelor 90mg bid Amiodarone 400mg daily Lisinopril 5mg daily Metoprolol 25mg bid. Atorvastatin 40mg daily DIAGNOSTIC TESTING: No new testing No events on tele. ASSESSMENT: 1. VF arrest in the setting of SCAD with PCI of the LAD 2. Ischemic cardiomyopathy PLAN: 1. Plan for home on above meds with Toprol XL instead of tartrate. 2. Lifevest discussed with patient, she is willing to wear it. 3. Cardiac rehab through [facility]. Supportive care. f/u in the office in 4 weeks. Repeat echo in 6 weeks Discussed with family. ANH KEATING MD May 26, 2018 11:39
[2018-05-26] MEDS ORDERED: AMIO200T4 PO (14:03)
[2018-05-26] MEDS ORDERED: ASPI-612 PO (14:03)
[2018-05-26] MEDS ORDERED: TICA90TA PO (14:03)
[2018-05-26] MEDS ORDERED: LISI-338 PO (14:03)
[2018-05-26] MEDS ORDERED: NITR0.4T SL (14:03)
[2018-05-26] MEDS ORDERED: ATOR40TA59 PO (14:03)
[2018-05-26] MEDS ORDERED: METO25TA4 PO (14:03)
--- NOTE | 2018-05-26 14:11 | PDOC3 ---
Discharge Summary Visit Information Date of Admission: May 23, 2018 Date of Discharge: May 26, 2018 Admitting Diagnosis: STEMI Final Diagnosis Problems Medical Problems: (1) STEMI (ST elevation myocardial infarction) Status: Acute Brief Hospital Course Allergies Allergies Coded Allergies Type Severity Reaction Last Updated Verified morphine Adverse Reaction Intermediate "MAKES HER ANGRY" 05/23/18 Yes Vital Signs Vital Signs Date Time Temp Pulse Resp B/P (MAP) Pulse Ox O2 Delivery O2 Flow Rate FiO2 05/26/18 11:30 97.7 75 20 120/55 (76) Room Air 97.7 05/26/18 11:24 99 Lab Results Laboratory Tests Test 05/25/18 04:30 White Blood Count 14.3 x10^3/uL (4.0-11.0) Red Blood Count 4.46 x10^6/uL (3.50-5.40) Hemoglobin 13.1 g/dL (12.0-15.5) Hematocrit 38.9 % (36.0-47.0) Mean Corpuscular Volume 87 fL (79-100) Mean Corpuscular Hemoglobin 30 pg (25-35) Mean Corpuscular Hemoglobin Concent 34 g/dL (31-37) Red Cell Distribution Width 14.4 % (11.5-14.5) Platelet Count 190 x10^3/uL (140-400) Sodium Level 139 mmol/L (136-145) Potassium Level 3.3 mmol/L (3.5-5.1) Chloride Level 105 mmol/L (98-107) Carbon Dioxide Level 24 mmol/L (21-32) Anion Gap 10 (6-14) Blood Urea Nitrogen 7 mg/dL (7-20) Creatinine 0.6 mg/dL (0.6-1.0) Estimated GFR (Cockcroft-Gault) 109.6 Glucose Level 109 mg/dL (70-99) Calcium Level 7.8 mg/dL (8.5-10.1) Magnesium Level 2.2 mg/dL (1.8-2.4) Brief Hospital Course Ms Russo is a 43-year-old female [place] national with PMhx of asthma, ITP (s/p splenectomy) who presents with chest pain while swimming 05/23/2018. She was from [place] as a STEMI activation. Patient reports she was swimming and suddenly experienced crushing chest pain and nausea. Patient's father having an [place] in his 60s. no hx of DVT or PE. per patient has been exercising frequently, doing crossfit. no hx of diabetes, HTN, HLD, or smoking history. She had not been feeling well for past several days and saw PCP 2 days prior to admit, noted to have leukocytosis. patient has amoxicllin at home due to hx of splenectomy so took this bc wasn't feeling well. no reported fever cough, sob nausea vomiting or diarrhea. Prior to arrival EMS reports giving 324 mg of aspirin, 100 g of fentanyl, nitroglycerin sublingual 2, zofran 4mg, and 1 inch of Nitropaste. Patient found to have STEMI on EKG in lV2 and V3. en route to optical lab technician patient found to be in vfib, subsequently intubated and shocked. given bolus of amio and started on amio drip and dopamine drip. also given bolus of heparin. Found on cath with LAD occlusion and 1 stent deployed. Extubated without event, placed on amio, metoprolol, brillinta, ASA, atorvastatin, lisinopril. She is feeling better today, no chest pain, no shortness of breath. Had posterior headache, turns out her hair tie was stuck in her hair. Plan: Oral amio, BB, DENNY/ARB, dual antiplatelet therapy. Will need cardiac rehab to guide her further exercise routine. - Set up at [facility] per cardiology Life vest set up outpatient F/u echo in 4-6 weeks with cardiology f/u as well [facility] in the future Greater than 30 minutes spent on discharge\\ PE General: no distress Heart: Regular rate Lungs: Clear Abdomen: Normal bowel sounds STEMI s/p cath with LAD occlusion with stent deployed Acute Hypoxic Resp Failure Hx of Asthma Hx of ITP s/p splenectomy Discharge Information Condition at Discharge: Improved Follow Up: Weeks (2) Disposition/Orders: D/C to Home Scheduled Amiodarone Hcl (Amiodarone Hcl) 200 Mg Tablet, 200 MG PO BID for STEMI for 30 Days, #60 Ref 5 Prescribed by: GLORIA ROCHA MD on 05/26/18 1403 Aspirin (Aspirin Ec) 81 Mg Tablet., 81 MG PO [id number] for STEMI for 30 Days , #30 Ref 5 Prescribed by: GLORIA ROCHA MD on 05/26/18 140 Atorvastatin Calcium (Atorvastatin Calcium) 40 Mg Tablet, 40 MG PO QHS for HLD for 30 Days, #30 Ref 5 Prescribed by: GLORIA ROCHA MD on 05/26/18 1403 Lisinopril (Lisinopril) 5 Mg Tablet, 5 MG PO DAILY for HTN for 30 Days, #30 Ref 5 Prescribed by: GLORIA ROCHA MD on 05/26/18 1403 Metoprolol Tartrate (Metoprolol Tartrate) 25 Mg Tablet, 25 MG PO BID for STEMI for 30 Days, #60 Ref 5 Prescribed by: GLORIA ROCHA MD on 05/26/18 1403 Ticagrelor (Brilinta) 90 Mg Tablet, 90 MG PO BID for STEMI for 30 Days, #60 Ref 11 Prescribed by: GLORIA ROCHA MD on 05/26/18 140 Scheduled PRN Nitroglycerin (Nitrostat) 0.4 Mg Tab.subl, 0.4 MG SL PRN Q5MIN PRN for CHEST PAIN for 30 Days, #30 Prescribed by: GLORIA ROCHA MD on 05/26/181402 GLORIA ROCHA MD May 26, 2018 14:11
--- NOTE | 2018-05-26 15:30 | NUR ---
Pt discharged to home, all discharge instructions, medications, scripts, education given to pt and . Kelsyl to set up home visit per [place] with life vest. Pt right groin dressing removed, no redness, warmth, drainage noted. PT assisted to car via wheelchair with staff and family.
== END 2018-05-26 15:35 | disposition home or self-care (01) | DRG 248 ==
LOC: ER 10:43 → 1 WEST ICU 11:00 → 2 NORTH 05-25 14:46
PROVIDERS: ADMIT Internal Medicine; ATTEND Internal Medicine
PROC: 02703DZ Dilation of Coronary Artery, One Artery with Intraluminal Device, Percutaneous Approach (ICD-10-PCS; principal; 2018-05-23)
PROC: 0BH17EZ Insertion of Endotracheal Airway into Trachea, Via Natural or Artificial Opening (ICD-10-PCS; 2018-05-23)
PROC: 5A2204Z Restoration of Cardiac Rhythm, Single (ICD-10-PCS; 2018-05-23)
PROC: 4A023N7 Measurement of Cardiac Sampling and Pressure, Left Heart, Percutaneous Approach (ICD-10-PCS; 2018-05-23)
PROC: B2111ZZ Fluoroscopy of Multiple Coronary Arteries using Low Osmolar Contrast (ICD-10-PCS; 2018-05-23)
PROC: B2151ZZ Fluoroscopy of Left Heart using Low Osmolar Contrast (ICD-10-PCS; 2018-05-23)
PROC: 5A1935Z Respiratory Ventilation, Less than 24 Consecutive Hours (ICD-10-PCS; 2018-05-23)
DX: I21.09 ST elevation (STEMI) myocardial infarction involving other coronary artery of anterior wall (principal); I49.01 Ventricular fibrillation; J96.01 Acute respiratory failure with hypoxia; I25.42 Coronary artery dissection; I46.2 Cardiac arrest due to underlying cardiac condition; J98.11 Atelectasis; J45.909 Unspecified asthma, uncomplicated; D72.829 Elevated white blood cell count, unspecified; I25.10 Atherosclerotic heart disease of native coronary artery without angina pectoris; E87.6 Hypokalemia; I25.5 Ischemic cardiomyopathy; I48.91 Unspecified atrial fibrillation; Z90.710 Acquired absence of both cervix and uterus; Z82.49 Family history of ischemic heart disease and other diseases of the circulatory system; Z88.5 Allergy status to narcotic agent; Z90.81 Acquired absence of spleen
CPT/HCPCS: 92941; 93458; 99285; C8924; 36415; 36600; 71045; 80048; 80053; 80061; 82553; 82805; 83036; 83690; 83735; 83880; 84443; 84484; 85007; 85025; 85027; 85347; 85610; 85730; 87641; 93005; 93306; 94002; 94003; 94640; 94760; 96374; C1725; C1769; C1876; C1887; C1892; J0282; J0583; J0780; J1265; J1644; J1650; J2250; J2405; J2704; J3010; J3475; J3490; J7030; J7613; Q9956; Q9967; J3246

== ENCOUNTER 2018-06-12 08:53 | Observation (INO) | payer OTHER ==
[2018-06-12] VITALS (18 sets, daily range): BP systolic 93–114; BP diastolic 52–62
[~2018-06-12] VITALS: Ht 152.4 cm; Wt 85.5 kg
[~2018-06-12 08:53] MED LIST: AMIO200T4 PO; ASPI-612 PO; ATOR40TA59 PO; LISI-338 PO; METO25TA4 PO; NITR0.4T SL; TICA90TA PO
[2018-06-12] MEDS ORDERED: IODIXANOL 320 MG/ML 100 ML VIAL. ONE (10:45)
[2018-06-12] MEDS ORDERED: LIDOCAINE 1% PF 2 ML VIAL. ONE (10:45)
[2018-06-12] MEDS ORDERED: fentaNYL PF VIAL 100 MCG/2 ML VIAL ONE (11:09)
[2018-06-12] MEDS ORDERED: MIDAZOLAM HCL/PF 2 MG/2 ML VIAL. ONE (11:10)
[2018-06-12] MEDS ORDERED: NITROGLYCERIN 200 MCG/2 ML SYRINGE FOR CATH/VASC LAB. ONE ×2 (11:10→11:28)
[2018-06-12] MEDS ORDERED: VERAPAMIL 5 MG/2 ML VIAL. ONE (11:10)
[2018-06-12] MEDS ORDERED: HEPARIN for IV BOLUS 10,000 UNIT/10 ML VIAL. ONE (11:10)
[2018-06-12] MEDS ORDERED: ONDANSETRON PF 4 MG/2 ML VIAL. ONE (11:13)
[2018-06-12] MEDS ORDERED: MIDAZOLAM HCL/PF 2 MG/2 ML VIAL. IV ONE (11:30)
[2018-06-12] MEDS ORDERED: HEPARIN for IV BOLUS 10,000 UNIT/10 ML VIAL. IART ONE (11:30)
[2018-06-12] MEDS ORDERED: NITROGLYCERIN 200 MCG/2 ML SYRINGE FOR CATH/VASC LAB. IART ONE (11:30)
[2018-06-12] MEDS ORDERED: IODIXANOL 320 MG/ML 100 ML VIAL. IART ONE (11:30)
[2018-06-12] MEDS ORDERED: VERAPAMIL 5 MG/2 ML VIAL. IART ONE (11:30)
[2018-06-12] MEDS ORDERED: ONDANSETRON PF 4 MG/2 ML VIAL. IV ONE (11:30)
[2018-06-12] MEDS ORDERED: LIDOCAINE 1% PF 2 ML VIAL. INJ ONE (11:30)
[2018-06-12] MEDS ORDERED: fentaNYL PF VIAL 100 MCG/2 ML VIAL IV ONE (11:30)
--- NOTE | 2018-06-12 11:55 | CARD ---
MR#: [id number] Date of Study: 06/12/2018 Ordering Physician: ANH HALE, Referring Physician: ANH HALE, Tech: ALIS LANDON RTR APPROVED REPORT Technologist: ALIS LANDON RTR Nurse: Rika Lynch R.N. 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 Prior known EF of 30-35%. INDICATION The indication(s) include : unstable angina . CSHA Clinical Frailty Scale CS Clinical Frailty Scale: Vulnerable Heart Failure Heart Failure: Yes If Yes, Newly Diagnosed: No If Yes, HF Type: Systolic If Yes, NYHA Class: Class II PROCEDURE NARRATIVE INFORMED CONSENT: After explaining the risks and benefits of the procedure and alternatives, informed consent was obtained. The patient was brought electively to the cardiac catheterization lab. A timeout was performed confi rming the patient's name, date of , procedure, and site of procedure. All necessary personnel w ere wearing the appropriate protective equipment and radiation monitor devices. (See nursing notes for medications administered). ACCESS: The right wrist was sterilely prepped and draped in the usual fashion. The right wrist was infiltrat ed with 1 mL of 2% lidocaine for subcutaneous anesthesia. A 6 [place] Terumo glide sheath was inserte d into the right radial artery without difficulty. CORONARY ANGIOGRAPHY: Right and left coronary angiography was performed using a 6Fr TIG 4.0 catheter. Left ventricular en d diastolic pressure was obtained with a TIG catheter and pullback was performed. All catheter excha nges and advancements were performed over a guidewire. CLOSURE: At case completion the right radial sheath was removed and a Terumo radial band was applied with 13 m l of air. COMPLICATIONS: The patient tolerated the procedure well and there were no immediate complications. FINDINGS: HEMODYNAMICS: LVEDP 5 mm Hg No gradient on LV to aortic pullback. AO: 128/78 LEFT VENTRICULOGRAM:Deferred due to known EF CORONARY ANGIOGRAPHY: LM is a large caliber vessel with normal angiographic appearance. LAD is a large caliber vessel with a patent mid stent. No residual dissection is noted. D1/D2 are moderate caliber vessels with normal angiographic apeparance. LCx is a moderate caliber non-dominant vessel with normal angiographic appearance. OM1 is a moderate caliber vessel with normal angiographic appearance. RCA is a large caliber dominant vessel with normal angiographic appearance. RPDA and RPL are moderate caliber vessels with normal angiographic appearance. Conclusion 1. Normal LVEDP. 2. One vessel spontaneous coronary artery dissection, well healed after recent PCI to the mid LAD. Recommendations 1. Continue current medical therapy including asa, ticagrelor, low dose lisinopril. 2. Send home with prn NTG. 3. Ok to DC later today. Signed by : Anh Hael, Electronically Approved : 06/12/2018 11:54:41
[2018-06-12] MEDS ORDERED: NITROGLYCERIN SUBLINGUAL 0.4 MG BOTTLE OF 25. SL PRN (12:15)
[2018-06-12] MEDS ORDERED: TICAGRELOR 90 MG TABLET. PO SCH (12:30)
[2018-06-12] MEDS ORDERED: ASPIRIN ENTERIC COATED 81 MG TABLET.DR. PO SCH (12:30)
[2018-06-12] MEDS ORDERED: METOPROLOL TART IMMED RELEASE 25 MG TABLET. PO SCH (12:30)
[2018-06-12] MEDS ORDERED: LISINOPRIL 5 MG TABLET. PO SCH (12:30)
[2018-06-12] MEDS ORDERED: AMIODARONE HCL 200 MG TABLET. PO SCH (12:30)
[2018-06-12] MEDS ORDERED: PROCHLORPERAZINE 10 MG/2 ML VIAL. IV PRN (14:00)
[2018-06-12] MEDS ORDERED: ONDANSETRON PF 4 MG/2 ML VIAL. IV PRN ×2 (14:00)
[2018-06-12] MEDS ORDERED: MAGNESIUM HYDROXIDE 2,400 MG/30 ML ORAL.SUSP. PO PRN (14:00)
[2018-06-12] MEDS ORDERED: PROCHLORPERAZINE 25 MG SUPP.RECT. PR PRN (14:00)
[2018-06-12] MEDS ORDERED: IV NORMAL SALINE 1000ML BAG 1,000 ML IV SCH (14:00)
[2018-06-12] MEDS ORDERED: KETOROLAC 15 MG/ML VIAL. IV PRN (14:00)
[2018-06-12] MEDS ORDERED: ZOLPIDEM 5 MG TABLET. PO PRN (14:00)
[2018-06-12] MEDS ORDERED: CALCIUM CARBONATE 500 MG TAB.CHEW PO PRN (14:00)
[2018-06-12] MEDS ORDERED: ACETAMINOPHEN 325 MG TABLET. PO PRN (14:00)
[2018-06-12] MEDS ORDERED: ACETAMINOPHEN 500 MG TABLET PO PRN (14:00)
[2018-06-12] MEDS ORDERED: oxyCODONE IR 5 MG TABLET PO PRN (14:00)
[2018-06-12] MEDS ORDERED: MAG HYDROX/ALUMINUM HYD/SIMETH 30 ML ORAL.SUSP PO PRN (14:00)
--- NOTE | 2018-06-12 14:00 | PDOC1 ---
History and Physical Date of Admission Date of Admission DATE: 06/12/18 TIME: 13:55 Identification/Chief Complaint Chief Complaint chest Pain post stemi last month-transfer from [facility] Source Source: Caregiver, Chart review, Patient History of Present Illness History of Present Illness 43-year-old white female very pleasant, STEMI 05/2018 and appropriately treated with stents. Chest pain today, was seen at [facility]. Because of recent STEMI high risk, patient transferred here. Underwent LHC which showed patent stents. Right ulnar access, vital signs blood pressure on the low side 90/60, she usually runs low per patient-asymptomatic Normal saline at 100 mL an hour. We will monitor for now post LHC. The tentative plans of DC possibly later if not tomorrow dw RN and cards Past Medical History Cardiovascular: CAD Pulmonary: Asthma Past Surgical History Past Surgical History: No pertinent history Family History Family History: Coronary Artery Disease, Heart Disease Social History Smoke: No ALCOHOL: occassional Drugs: None Current Medications Current Medications Current Medications Iodixanol (Visipaque 320) 100 ml STK-MED ONCE .ROUTE ; Start 06/12/18 at 10:45; Stop 06/12/18 at 10:46; Status DC Lidocaine HCl (Xylocaine-Mpf 1% 2ml Vial) 2 ml STK-MED ONCE .ROUTE ; Start 06/12/18 at 10:45; Stop 06/12/18 at 10:46; Status DC Heparin Sodium/ Sodium Chloride 1,000 ml @ As Directed STK-MED ONCE .ROUTE ; Start 06/12/18 at 10:45; Stop 06/12/18 at 10:46; Status DC Fentanyl Citrate (Fentanyl 2ml Vial) 100 mcg STK-MED ONCE .ROUTE ; Start 06/12/18 at 11:09; Stop 06/12/18 at 11:10; Status DC Midazolam HCl (Versed) 2 mg STK-MED ONCE .ROUTE ; Start 06/12/18 at 11:10; Stop 06/12/18 at 11:11; Status DC Heparin Sodium (Porcine) (Heparin Sodium) 10,000 unit STK-MED ONCE .ROUTE ; Start 06/12/18 at 11:10; Stop 06/12/18 at 11:11; Status DC Verapamil HCl (Verapamil) 5 mg STK-MED ONCE .ROUTE ; Start 06/12/18 at 11:10; Stop 06/12/18 at 11:11; Status DC Nitroglycerin (Nitroglycerin) 200 mcg STK-MED ONCE .ROUTE ; Start 06/12/18 at 11:10; Stop 06/12/18 at 11:11; Status DC Ondansetron HCl (Zofran) 4 mg STK-MED ONCE .ROUTE ; Start 06/12/18 at 11:13; Stop 06/12/18 at 11:14; Status DC Nitroglycerin (Nitroglycerin) 200 mcg STK-MED ONCE .ROUTE ; Start 06/12/18 at 11:28; Stop 06/12/18 at 11:29; Status DC Nitroglycerin (Nitroglycerin) 400 mcg 1X ONCE IART Last administered on 06/12/18at 11:39; Start 06/12/18 at 11:30; Stop 06/12/18 at 11:34; Status DC Verapamil HCl (Verapamil) 2.5 mg 1X ONCE IART Last administered on 06/12/18 11:41; Start 06/12/18 at 11:30; Stop 06/12/18 at 11:34; Status DC Heparin Sodium (Porcine) (Heparin Sodium) 2,500 unit 1X ONCE IART Last administered on 06/12/18at 11:40; Start 06/12/18 at 11:30; Stop 06/12/18 at 11:34; Status DC Heparin Sodium/ Sodium Chloride (HEPARIN for ARTERIAL LINE FLUSH) 1,000 unit 1X ONCE IART Last administered on 06/12/18 11:39; Start 06/12/18 at 11:30; Stop 06/12/18 at 11:34; Status DC Midazolam HCl (Versed) 2 mg 1X ONCE IV Last administered on 06/12/18 11:42; Start 06/12/18 at 11:30; Stop 06/12/18 at 11:34; Status DC Fentanyl Citrate (Fentanyl 2ml Vial) 100 mcg 1X ONCE IV Last administered on 06/12/18 11:41; Start 06/12/18 at 11:30; Stop 06/12/18 at 11:34; Status DC Iodixanol (Visipaque 320) 100 ml 1X ONCE IART Last administered on 06/12/18 11:39; Start 06/12/18 at 11:30; Stop 06/12/18 at 11:34; Status DC Lidocaine HCl (Xylocaine-Mpf 1% 2ml Vial) 1 ml 1X ONCE INJ Last administered on 06/12/18at 11:40; Start 06/12/18 at 11:30; Stop 06/12/18 at 11:34; Status DC Ondansetron HCl (Zofran) 4 mg 1X ONCE IV Last administered on 06/12/18at 11:42; Start 06/12/18 at 11:30; Stop 06/12/18 at 11:34; Status DC Amiodarone HCl (Cordarone) 200 mg BID PO ; Start 06/12/18 at 12:30 Aspirin (Ecotrin) 81 mg DAILYWBKFT PO ; Start 06/12/18 at 12:30 Atorvastatin Calcium (Lipitor) 40 mg QHS PO ; Start 06/12/18 at 21:00 Metoprolol Tartrate (Lopressor) 25 mg BID PO ; Start 06/12/18 at 12:30 Nitroglycerin (Nitrostat) 0.4 mg PRN Q5MIN PRN SL CHEST PAIN; Start 06/12/18 at 12:15 Ticagrelor (Brilinta) 90 mg BID PO ; Start 06/12/18 at 12:30 Lisinopril (Prinivil) 5 mg DAILY PO ; Start 06/12/18 at 12:30 Active Scripts Active Aspirin Ec (Aspirin) 81 Mg Tablet.dr 81 Mg PO DAILYWBKFT 30 Days Lisinopril 5 Mg Tablet 5 Mg PO DAILY 30 Days Metoprolol Tartrate 25 Mg Tablet 25 Mg PO BID 30 Days Nitrostat (Nitroglycerin) 0.4 Mg Tab.subl 0.4 Mg SL PRN Q5MIN PRN 30 Days Atorvastatin Calcium 40 Mg Tablet 40 Mg PO QHS 30 Days Amiodarone Hcl 200 Mg Tablet 200 Mg PO BID 30 Days Brilinta (Ticagrelor) 90 Mg Tablet 90 Mg PO BID 30 Days Allergies Allergies: Coded Allergies: morphine (Verified Adverse Reaction, Intermediate, "MAKES HER ANGRY", 05/23/18) ROS Review of System A 14 point ROS was completed with the following noted as positive: Other systems reviewed and negative. \\CONSTITUTIONAL: No fever or chills EYES: No recent changes SKIN: No rash or itching CARDIOVASCULAR: No chest pain, syncope, palpitations, or edema RESPIRATORY: No SOB or cough GASTROINTESTINAL: No nausea, vomiting or abdominal pain NEUROLOGICAL: No headaches or weakness ENDOCRINE: No cold or heat intolerance GENITOURINARY: No urgency or frequency of urination MUSCULOSKELETAL: No back pain or joint pain LYMPHATICS: No enlarged lymph nodes PSYCHIATRIC: No anxiety or depression Physical Exam General: Alert, Oriented X3, Cooperative, No acute distress HEENT: PERRLA, EOMI Lungs: Clear to auscultation, Normal air movement Heart: S1S2, RRR, no thrills, no rubs, no gallops, no murmurs Cardiovascular: S1, S2 Breasts: Normal, Rt breast nml w/o mass, Lt breast nml w/o mass, Nipples normal Abdomen: Normal bowel sounds, Soft, No tenderness, No hepatosplenomegaly, No masses Rectal Exam: not examined PELVIC: Nml ext genitalia Extremities: No clubbing, No cyanosis, No edema, Normal pulses, No tenderness/swelling Skin: No rashes, No breakdown, No significant lesion Neuro: Normal gait, Normal speech, Strength at 5/5 X4 ext, Normal tone, Sensation intact, Cranial nerves 3-12 NL, Reflexes 2+ Psych/Mental Status: Mental status NL, Mood NL Vitals Vitals Vital Signs Date Time Temp Pulse Resp B/P (MAP) Pulse Ox O2 Delivery O2 Flow Rate FiO2 06/12/18 12:11 98 Room Air 2.0 06/12/18 11:43 60 16 06/12/18 11:41 113/62 06/12/18 10:00 97.4 97.4 VTE Prophylaxis Ordered VTE Prophylaxis Devices: Yes VTE Pharmacological Prophylaxi: Yes Assessment/Plan Assessment/Plan Recent STEMI 05/26/18 Chest pain today, patent stents-status post LHC 06/12/18 RElative hypotension Plan OBS NS 100cc.hr CArdiac meds have been resumed duane blood thinners (brilinta) MOntor for further hypotension or arrhythmias post LHC today Home later if not tmr AM if uneventful overnight Dw RENU DURAND MD June 12, 2018 14:00
--- NOTE | 2018-06-12 18:55 | NUR ---
Discharge Note: SILVIO [facility] Discharge instructions and discharge home medications reviewed with Patient and a copy given. All questions have been answered and understanding verbalized. The following instructions and handouts were given: Angina, cardiac diet, chest pain, and psot cardiac cath. Discontinued iv lines catheter intact. Patient discharged to home with sposue via private vachile.
[2018-06-12] MEDS ORDERED: ATORVASTATIN CALCIUM 40 MG TABLET. PO SCH (21:00)
[2018-06-12] MEDS ORDERED: DOCUSATE SODIUM 100 MG CAPSULE. PO SCH (21:00)
== END 2018-06-12 18:45 | disposition home or self-care (01) ==
LOC: INTOOBSV 10:08 → 2 SOUTH 10:08
PROVIDERS: ADMIT Internal Medicine Cardiovascular Disease; ATTEND Internal Medicine Cardiovascular Disease
DX: R07.9 Chest pain, unspecified (principal); I25.10 Atherosclerotic heart disease of native coronary artery without angina pectoris; I95.9 Hypotension, unspecified; J45.909 Unspecified asthma, uncomplicated; I25.2 Old myocardial infarction; Z82.49 Family history of ischemic heart disease and other diseases of the circulatory system; Z79.899 Other long term (current) drug therapy; Z88.8 Allergy status to other drugs, medicaments and biological substances
CPT/HCPCS: 93458; 96374; 96375; C1769; C1892; G0378; G0379; J1644; J2250; J2405; J3010; J3490; J7030; Q9967; 99152; 99153

== ENCOUNTER → 2018-08-06 | Outpatient (CLI) | payer OTHER ==
[2018-06-12 18:35] VITALS: BP 98/56
[~2018-08-06] MED LIST changes: +HEPARIN for NUC MED 500 UNIT/5 ML DISP.SYRIN. IV ONE
--- NOTE | 2018-08-08 08:23 | RAD ---
[facility] CLINICAL INDICATION: Ischemic cardiomyopathy. Technique: 22 mCi of Tc-99 M labeled Ultratag red blood cells. Comparison: None available. Findings: The heart rate is 53 bpm. There are no rejected beats, the sinogram illustrates this. The phase diagram is appropriate. The calculated left ventricular ejection fraction is 64.2%. Impression: Left ventricular ejection fraction of 64.2%. Electronically signed by: Landon Cheney MD (08/08/2018 8:20 AM) [id number]
== END | disposition home or self-care (01) ==
LOC: NM 08:17
PROVIDERS: ATTEND Internal Medicine Cardiovascular Disease
DX: I25.5 Ischemic cardiomyopathy (principal); Z95.0 Presence of cardiac pacemaker
CPT/HCPCS: 78472; A9560